=== PATIENT | female | born 1965 | race Caucasian/White ===

== ENCOUNTER 2023-07-25 16:00 | Outpatient (AMB) | payer OTHER, SELFPAY ==
--- NOTE | 2023-07-25 15:55 | MHC.OFFVISPS ---
Intake Vital Signs 07/25/23 15:55 Height 5 ft 4.5 in Weight 175 lb Intake Visit Reasons: depression, JOE Allergies sulfamethoxazole [From BACTRIM] Allergy (Mild, Unverified 01/27/20 17:29) RASH tetracycline [TETRACYCLINE] Allergy (Mild, Unverified 01/27/20 17:29) BRUISING trimethoprim [From BACTRIM] Allergy (Mild, Unverified 01/27/20 17:29) RASH Medication List - Last Reconciled 07/25/23 by Jayne Diez, ZENIA bupropion HCl (Wellbutrin XL) 150 mg PO QAM duloxetine 30 mg PO DAILY fluticasone propionate 110 mcg/actuation inhalation hydroxyzine HCl 25 mg PO BID PRN pantoprazole 40 mg PO DAILY risperidone 0.5 mg PO BEDTIME risperidone 0.25 mg PO BEDTIME trazodone 200 mg PO BEDTIME HPI- Psychiatric Chief Complaint: depression, JOE HPI Narrative: reports mood better; less anxious; coping well; happier; she has been feeling more anxious; Sleep is better; no abnormal or involuntary movements; no mouth or chin movements; she denies tremor or involuntary movements of her shoulders, arms, feet or trunk; she is sleeping 7-8 hours. she denies SI or HI. Past Psychiatric History: first depression in 2004 when brother due to cirrhosis, age 36 (ETOH/drugs) mother started drinking after, pt felt like she lost her brother and mother; moved out in 2019 after several years of conflict No IPLOC or PHP saw Dr Rivera in past Medication Trials: prozac - didn't help, nauseous Wellbutrin - no sex drive [place] - wasn't good, weird mouth movement felt weird Assessment and Plan Assessment & Plan (1) Major depression, recurrent, full remission: Status: Acute Code(s): F33.42 - Major depressive disorder, recurrent, in full remission (2) JOE (generalized anxiety disorder): Status: Acute Code(s): F41.1 - Generalized anxiety disorder Plan continue home meds as below reduce trazodone to 100mg at hs due to am sedation reduce prn use of hydroxyzine due to fatigue given information re: 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 Self Management counseling: Exercise, Maintenance-social rhythm, Mod caffeine/ETOH intake, Sleep hygiene, Behavior activation and General coping skills Medication management counseling: Effectiveness, Side effects, Dosing range, Duration, Drug interaction and Adherence Diagnosis and Prognosis Counseling: Accuracy of diagnosis, Prognosis over time, Impact of family relationship and Adequacy of current interventions Details: I spent 45 minutes reviewing the record, seeing the patient and documenting in the medical record. Counseling provided to the patient/caregiver as outlined below. Addressed patient/caregiver concerns regarding current medication regime including effective adherence. Addressed patient/caregiver concerns regarding diagnosis and prognosis including accuracy of diagnosis, prognosis over time, impact of diagnosis. Addressed patient/caregiver concerns regarding impact of recent stressors. [facility] Medical History (Updated 07/25/23 @ 16:00 by Jayne Diez APRN) Osteoarthritis Hyponatremia Surgical History (Updated 07/25/23 @ 15:57 by Jayne Diez APRN) H/O bilateral hip replacements Social History: grew up in [place] lived with mother and father, moved to [place], parents with patient was 89 brother who at age 36stepfather entered family when patient was 17separated from and 2 step children (estranged from) couldn't have children of own mom and stepfather are supportive Substance History: none Trauma History: none Coding Level of Care Code Est Pt Level 5 (17717) Diagnoses Major depression, recurrent, full remission F33.42 JOE (generalized anxiety disorder) F41.1
== END 2023-07-25 16:50 | disposition home or self-care (01) ==
LOC: HO.HOP 16:01
PROVIDERS: PCP Internal Medicine; Visit Provider Clinical Nurse Specialist Psychiatric/Mental Health
DX: F33.42 Major depressive disorder, recurrent, in full remission (principal); F41.1 Generalized anxiety disorder
CPT/HCPCS: 99215

== ENCOUNTER → 2023-07-25 16:00 | Outpatient (BNVA) | payer OTHER, SELFPAY | PROVIDERS: PCP Internal Medicine; Visit Provider Clinical Nurse Specialist Psychiatric/Mental Health | DX: F33.42 Major depressive disorder, recurrent, in full remission (principal); F41.1 Generalized anxiety disorder; Z79.899 Other long term (current) drug therapy | CPT/HCPCS: 99212 ==

== ENCOUNTER 2023-11-06 15:57 | Outpatient (AMB) | payer OTHER, SELFPAY ==
--- NOTE | 2023-11-06 16:09 | MHC.OFFVISPS ---
Intake Intake Visit Reasons: Depression, anxiety Allergies sulfamethoxazole [From BACTRIM] Allergy (Mild, Unverified 01/27/20 17:29) RASH tetracycline [TETRACYCLINE] Allergy (Mild, Unverified 01/27/20 17:29) BRUISING trimethoprim [From BACTRIM] Allergy (Mild, Unverified 01/27/20 17:29) RASH Medication List - Last Reconciled 11/06/23 by Jayne Diez APRN bupropion HCl XL (Wellbutrin XL) 150 mg PO QAM duloxetine 30 mg PO DAILY fluticasone propionate 110 mcg/actuation inhalation hydroxyzine HCl 25 mg PO BID PRN pantoprazole 40 mg PO DAILY risperidone 0.5 mg PO BEDTIME risperidone 0.25 mg PO BEDTIME trazodone 100 mg PO BEDTIME HPI- Psychiatric Chief Complaint: Depression, anxiety HPI Narrative: pt reports mood fair; very little depression; she scores a 7 on PHQ9. she reports anxiety is increased; she feels more anxious as mother's Alzheimer's Disease progresses. She utilizes the hydroxyzine prn if needed and it helps. Pts dog has also been sick. She worries about her dog. 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 Pt tends to spend time by herself; she prefers quiet activities and staying home; she walks every day while at work. she takes meds consistently; no side effects. no medical changes. no SI or HI. no A/V H Past Psychiatric History: first depression in 2004 when brother due to cirrhosis, age 36 (ETOH/drugs) mother started drinking after, pt felt like she lost her brother and mother; moved out in 2019 after several years of conflict No IPLOC or PHP saw Dr Rivera in past Medication Trials: prozac - didn't help, nauseous Wellbutrin - no sex drive [place] - wasn't good, weird mouth movement felt weird Subjective Subjective Subjective Medication Compliance: Yes Side effects from medications: No Review of Systems Medical Review of Systems: unchanged Mental Status Exam Mental Status Exam Patient Appearance: Well Grooomed and Appropriate Patient Orientation: Person, Place, Time and Situation Level of Consciousness: Awake and Appropriate Patient Behavior: Appropriate and Cooperative Mood Description: Appropriate, Anxious and Sad Affect Description: Anxious and Sad Patient Cognition Impaired: No Ability to Follow Directions: Good Speech Pattern: Clear and Soft-Spoken Memory Description: Intact Hallucinations: None Delusions: Not Present Thought Process: Intact and Goal Oriented Thought Content: positive for Intact and positive for Goal Oriented Judgement: Good Assessment and Plan Assessment & Plan (1) JOE (generalized anxiety disorder): Status: Acute Code(s): F41.1 - Generalized anxiety disorder (2) Major depression, recurrent, full remission: Status: Acute Code(s): F33.42 - Major depressive disorder, recurrent, in full remission Medications: Refilled bupropion HCl XL (Wellbutrin XL) 150 mg PO QAM 30 tabs 3RF risperidone 0.5 mg PO BEDTIME 30 tabs 3RF risperidone 0.25 mg PO BEDTIME 30 tabs 3RF trazodone 100 mg PO BEDTIME 90 tabs 1RF duloxetine 30 mg PO DAILY 30 caps 3RF Counseling and coordination of Care Pt. Self Management counseling: Exercise, Mod caffeine/ETOH intake, Sleep hygiene and Behavior activation Medication management counseling: Effectiveness, Side effects, Dosing range, Duration, Drug interaction and Adherence Diagnosis and Prognosis Counseling: Accuracy of diagnosis, Prognosis over time, Impact of diagnosis on life functions, Impact of family relationship and Adequacy of current interventions Details: I spent 45 minutes reviewing the record, seeing the patient and documenting in the medical record. Counseling provided to the patient/caregiver as outlined below. Addressed patient/caregiver concerns regarding current medication regime including effective adherence. Addressed patient/caregiver concerns regarding diagnosis and prognosis including accuracy of diagnosis, prognosis over time, impact of diagnosis. Addressed patient/caregiver concerns regarding impact of recent stressors. [facility] Medical History (Updated 07/25/23 @ 16:00 by Jayne Diez APRN) Osteoarthritis Hyponatremia Surgical History (Updated 07/25/23 @ 15:57 by Jayne Diez APRN) H/O bilateral hip replacements Social History: grew up in [place] lived with mother and father, moved to [place], parents with patient was 89 brother who at age 36stepfather entered family when patient was 17separated from and 2 step children (estranged from) couldn't have children of own mom and stepfather are supportive Substance History: none Trauma History: none Coding Level of Care Code Est Pt Level 4 (60382) Therapy 30m w/E&M (60856) Diagnoses JOE (generalized anxiety disorder) F41.1 Major depression, recurrent, full remission F33.42 Comment CBT and problem solving therapy to reduce caregiver distress
== END 2023-11-06 16:27 | disposition home or self-care (01) ==
LOC: HO.HOP 15:57
PROVIDERS: PCP Internal Medicine; Visit Provider Clinical Nurse Specialist Psychiatric/Mental Health
DX: F41.1 Generalized anxiety disorder (principal); F33.42 Major depressive disorder, recurrent, in full remission
CPT/HCPCS: 90833; 99214

== ENCOUNTER → 2023-11-06 15:57 | Outpatient (BNVA) | payer OTHER, SELFPAY | PROVIDERS: PCP Internal Medicine; Visit Provider Clinical Nurse Specialist Psychiatric/Mental Health | DX: F41.1 Generalized anxiety disorder (principal); F33.42 Major depressive disorder, recurrent, in full remission | CPT/HCPCS: 99212 ==

== ENCOUNTER 2024-02-24 15:49 | Outpatient (AMB) | payer OTHER, SELFPAY ==
--- NOTE | 2024-02-24 16:26 | MHC.OFFVISPS ---
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 Allergies sulfamethoxazole [From BACTRIM] Allergy (Mild, Unverified 01/27/20 17:29) RASH tetracycline [TETRACYCLINE] Allergy (Mild, Unverified 01/27/20 17:29) BRUISING trimethoprim [From BACTRIM] Allergy (Mild, Unverified 01/27/20 17:29) RASH Medication List - Last Reconciled 02/24/24 by aJyne Diez, ZENIA bupropion HCl XL (Wellbutrin XL) 150 mg PO QAM duloxetine 30 mg PO DAILY fluticasone propionate 110 mcg/actuation inhalation hydroxyzine HCl 25 mg PO BID PRN pantoprazole 40 mg PO DAILY risperidone 0.5 mg PO BEDTIME risperidone 0.25 mg PO BEDTIME trazodone 100 mg PO BEDTIME HPI- Psychiatric Chief Complaint: depression HPI Narrative: Patient reports mood is stable she denies significant changes PHQ-9 equals 5 Genralized Anxiety Disorder-7 equals 1 she reports working 6 days a week and over time she also reports taking care of her mother she has very little time for leisure she is sleeping no medical changes she recently had her annual physical and had her blood sugar and cholesterol checked both of which were in the normal range. Past Psychiatric History: first depression in 2004 when brother due to cirrhosis, age 36 (ETOH/drugs) mother started drinking after, pt felt like she lost her brother and mother; moved out in 2019 after several years of conflict No IPLOC or PHP saw Dr Rivera in past Medication Trials: prozac - didn't help, nauseous Wellbutrin - no sex drive [place] - wasn't good, weird mouth movement felt weird Subjective Subjective Subjective Medication Compliance: Yes Side effects from medications: No Review of Systems Medical Review of Systems: unchanged Mental Status Exam Mental Status Exam Patient Appearance: Well Grooomed and Appropriate Patient Orientation: Person, Place, Time and Situation Level of Consciousness: Awake and Appropriate Patient Behavior: Appropriate Mood Description: Angry (irritable) Affect Description: Angry (irritable) Patient Cognition Impaired: No Ability to Follow Directions: Good Speech Pattern: Clear Memory Description: Intact Hallucinations: None Delusions: Not Present Thought Process: Intact Thought Content: positive for Intact Judgement: Good Assessment and Plan Assessment & Plan (1) JOE (generalized anxiety disorder): Status: Acute Code(s): F41.1 - Generalized anxiety disorder (2) Major depression, recurrent, full remission: Status: Acute Code(s): F33.42 - Major depressive disorder, recurrent, in full remission Plan renew meds return in 3 months Medications: Refilled risperidone 0.5 mg PO BEDTIME 30 tabs 3RF bupropion HCl XL (Wellbutrin XL) 150 mg PO QAM 30 tabs 3RF duloxetine 30 mg PO DAILY 30 caps 3RF risperidone 0.25 mg PO BEDTIME 30 tabs 3RF trazodone 100 mg PO BEDTIME 90 tabs 1RF Counseling and coordination of Care Pt. Self Management counseling: Maintenance-social rhythm, Sleep hygiene, Behavior activation, General coping skills and Problem solving Medication management counseling: Effectiveness, Side effects, Dosing range, Duration, Drug interaction and Adherence Diagnosis and Prognosis Counseling: Accuracy of diagnosis, Prognosis over time, Impact of diagnosis on life functions, Impact of family relationship, Problematic behaviors secondary to diagnosis and Adequacy of current interventions Details: I spent 30 minutes reviewing the record, seeing the patient and documenting in the medical record. Counseling provided to the patient/caregiver as outlined below. Addressed patient/caregiver concerns regarding current medication regime including effective adherence. Addressed patient/caregiver concerns regarding diagnosis and prognosis including accuracy of diagnosis, prognosis over time, impact of diagnosis. Addressed patient/caregiver concerns regarding impact of recent stressors. [facility] Medical History (Updated 07/25/23 @ 16:00 by Jayne Diez APRN) Osteoarthritis Hyponatremia Surgical History (Updated 07/25/23 @ 15:57 by Jayne Diez APRN) H/O bilateral hip replacements Social History: grew up in [place] lived with mother and father, moved to [place], parents with patient was 89 brother who at age 36stepfather entered family when patient was 17separated from and 2 step children (estranged from) couldn't have children of own mom and stepfather are supportive Substance History: none Trauma History: none Coding Level of Care Code Est Pt Level 4 (04577) Diagnoses JOE (generalized anxiety disorder) F41.1 Major depression, recurrent, full remission F33.42
== END 2024-02-24 16:36 | disposition home or self-care (01) ==
LOC: HO.HOP 15:49
PROVIDERS: PCP Internal Medicine; Visit Provider Clinical Nurse Specialist Psychiatric/Mental Health
DX: F41.1 Generalized anxiety disorder (principal); F33.42 Major depressive disorder, recurrent, in full remission
CPT/HCPCS: 99214

== ENCOUNTER → 2024-02-24 15:49 | Outpatient (BNVA) | payer OTHER, SELFPAY | PROVIDERS: PCP Internal Medicine; Visit Provider Clinical Nurse Specialist Psychiatric/Mental Health | DX: F41.1 Generalized anxiety disorder (principal); F33.42 Major depressive disorder, recurrent, in full remission | CPT/HCPCS: 99212 ==

== ENCOUNTER 2024-05-24 15:49 | Outpatient (AMB) | payer OTHER, SELFPAY ==
--- NOTE | 2024-05-24 16:13 | MHC.OFFVISPS ---
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 Allergies sulfamethoxazole [From BACTRIM] Allergy (Mild, Unverified 01/27/20 17:29) RASH tetracycline [TETRACYCLINE] Allergy (Mild, Unverified 01/27/20 17:29) BRUISING trimethoprim [From BACTRIM] Allergy (Mild, Unverified 01/27/20 17:29) RASH Medication List - Last Reconciled 05/24/24 by Jayne Diez, ZENIA bupropion HCl XL (Wellbutrin XL) 150 mg PO QAM duloxetine 30 mg PO DAILY fluticasone propionate 110 mcg/actuation inhalation hydroxyzine HCl 25 mg PO BID PRN pantoprazole 40 mg PO DAILY risperidone 0.5 mg PO BEDTIME risperidone 0.25 mg PO BEDTIME trazodone 100 mg PO BEDTIME HPI- Psychiatric Chief Complaint: depression HPI Narrative: mood improved; anxiety decreased; pt reports doing well overall; she reports her mother started some alzheimer's medication which has helped and it feels much less stressful. PHQ9=2 and GAD7= 0. pt is compliant with medications; she denies side effects; she has some back pain from arthritis and will start PT. NO SI no HI . No sign of TD movements. no seddation no dizziness. Past Psychiatric History: first depression in 2004 when brother due to cirrhosis, age 36 (ETOH/drugs) mother started drinking after, pt felt like she lost her brother and mother; moved out in 2019 after several years of conflict No IPLOC or PHP saw Dr Rivera in past Medication Trials: prozac - didn't help, nauseous Wellbutrin - no sex drive [place] - wasn't good, weird mouth movement felt weird Subjective Subjective Subjective Medication Compliance: Yes Side effects from medications: No Review of Systems Medical Review of Systems: unchanged Mental Status Exam Mental Status Exam Patient Appearance: Well Grooomed and Appropriate Patient Orientation: Person, Place, Time and Situation Level of Consciousness: Awake, Appropriate and Alert Patient Behavior: Appropriate and Cooperative Mood Description: Happy Affect Description: Happy Patient Cognition Impaired: No Ability to Follow Directions: Good Speech Pattern: Clear and Appropriate Memory Description: Intact Hallucinations: None Delusions: Not Present Thought Process: Intact and Goal Oriented Thought Content: positive for Intact and positive for Goal Oriented Judgement: Good Assessment and Plan Assessment & Plan (1) JOE (generalized anxiety disorder): Status: Acute Code(s): F41.1 - Generalized anxiety disorder (2) Major depression, recurrent, full remission: Status: Acute Code(s): F33.42 - Major depressive disorder, recurrent, in full remission Plan continue medications per below consider additional taper of risperdal in future follow up in 3 [facility] Medications: Refilled duloxetine 30 mg PO DAILY 90 caps 1RF risperidone 0.5 mg PO BEDTIME 90 tabs 1RF bupropion HCl XL (Wellbutrin XL) 150 mg PO QAM 90 tabs 1RF risperidone 0.25 mg PO BEDTIME 90 tabs 1RF trazodone 100 mg PO BEDTIME 90 tabs 1RF Counseling and coordination of Care Pt. Self Management counseling: Maintenance-social rhythm, Mod caffeine/ETOH intake, Sleep hygiene, Behavior activation, General coping skills and Problem solving Medication management counseling: Effectiveness, Side effects, Dosing range, Duration, Drug interaction and Adherence Diagnosis and Prognosis Counseling: Accuracy of diagnosis, Prognosis over time, Impact of diagnosis on life functions, Impact of family relationship, Problematic behaviors secondary to diagnosis and Adequacy of current interventions Details: I spent 40 minutes reviewing the record, seeing the patient and documenting in the medical record. Counseling provided to the patient/caregiver as outlined below. Addressed patient/caregiver concerns regarding current medication regime including effective adherence. Addressed patient/caregiver concerns regarding diagnosis and prognosis including accuracy of diagnosis, prognosis over time, impact of diagnosis. Addressed patient/caregiver concerns regarding impact of recent stressors. [facility] Medical History (Updated 07/25/23 @ 16:00 by Jayne Diez APRN) Osteoarthritis Hyponatremia Surgical History (Updated 07/25/23 @ 15:57 by Jayne Diez APRN) H/O bilateral hip replacements Social History: grew up in [place] lived with mother and father, moved to [place], parents with patient was 89 brother who at age 36stepfather entered family when patient was 17separated from and 2 step children (estranged from) couldn't have children of own mom and stepfather are supportive Substance History: none Trauma History: none Coding Level of Care Code Est Pt Level 4 (06562) Diagnoses JOE (generalized anxiety disorder) F41.1 Major depression, recurrent, full remission F33.42
== END 2024-05-24 16:24 | disposition home or self-care (01) ==
LOC: HO.HOP 15:49
PROVIDERS: PCP Internal Medicine; Visit Provider Clinical Nurse Specialist Psychiatric/Mental Health
DX: F41.1 Generalized anxiety disorder (principal); F33.42 Major depressive disorder, recurrent, in full remission
CPT/HCPCS: 99214

== ENCOUNTER → 2024-05-24 15:49 | Outpatient (BNVA) | payer OTHER, SELFPAY | PROVIDERS: PCP Internal Medicine; Visit Provider Clinical Nurse Specialist Psychiatric/Mental Health | DX: F41.1 Generalized anxiety disorder (principal); F33.42 Major depressive disorder, recurrent, in full remission | CPT/HCPCS: 99212 ==

== ENCOUNTER 2024-09-02 16:26 | Outpatient (AMB) | payer OTHER, SELFPAY ==
--- NOTE | 2024-09-02 16:07 | MHC.OFFVISPS ---
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 Allergies sulfamethoxazole [From BACTRIM] Allergy (Mild, Unverified 01/27/20 17:29) RASH tetracycline [TETRACYCLINE] Allergy (Mild, Unverified 01/27/20 17:29) BRUISING trimethoprim [From BACTRIM] Allergy (Mild, Unverified 01/27/20 17:29) RASH Medication List - Last Reconciled 09/02/24 by Jayne Diez, ZENIA bupropion HCl XL (Wellbutrin XL) 150 mg PO QAM duloxetine 30 mg PO DAILY fluticasone propionate 110 mcg/actuation inhalation hydroxyzine pamoate 25 mg PO BID PRN pantoprazole 40 mg PO DAILY risperidone 0.5 mg PO BEDTIME risperidone 0.25 mg PO BEDTIME trazodone 100 mg PO BEDTIME HPI- Psychiatric Chief Complaint: depression HPI Narrative: Pt seen by telehealth for follow re: depression and anxiety. pt reports she is struggling more with symptoms ; strees includes her mother with Alzheimer Disease is needing her help but is very irritable and says mean things to her; this is not unlike when she was growing up as her mother was harsh an dcritical of her when younger; pt having a hard time tolerating and there is no other family to help. she would like to go bck up on the risperdal to 1 mg which she was on in hte past wth good effect. No SI or HI Past Psychiatric History: first depression in 2004 when brother due to cirrhosis, age 36 (ETOH/drugs) mother started drinking after, pt felt like she lost her brother and mother; moved out in 2019 after several years of conflict No IPLOC or PHP saw Dr Rivera in past Medication Trials: prozac - didn't help, nauseous Wellbutrin - no sex drive [place] - wasn't good, weird mouth movement felt weird Subjective Subjective Subjective Medication Compliance: Yes Side effects from medications: No Review of Systems Medical Review of Systems: unchanged Mental Status Exam Mental Status Exam Patient Appearance: Appropriate Patient Orientation: Person, Place, Time and Situation Level of Consciousness: Awake and Appropriate Patient Behavior: Appropriate and Cooperative Mood Description: Appropriate and Anxious Affect Description: Anxious Patient Cognition Impaired: No Ability to Follow Directions: Good Speech Pattern: Clear and Appropriate Memory Description: Intact Hallucinations: None Delusions: Not Present Thought Process: Intact Thought Content: positive for Intact Judgement: Fair Telehealth Telehealth Telehealth Platform: Other (please specify) (vivek.) Location of provider rendering services: practice address Location of patient: other (in her car in [facility] parked in a safe area) Patient Identification confirmed using: Name, : Yes Telehealth method: video Patient verbally consented to treatment: Yes Patient verbally consented to billing insurance company: Yes Patient informed of any privacy concerns related to visit: Yes Minutes spent on Phone/Video with Pt.: 30 Assessment and Plan Assessment & Plan (1) JOE (generalized anxiety disorder): Status: Acute Code(s): F41.1 - Generalized anxiety disorder (2) Major depression, recurrent, full remission: Status: Acute Code(s): F33.42 - Major depressive disorder, recurrent, in full remission Plan resume risperdal 1 mg daily continue other meds as per below Medications: New risperidone (Risperdal) 1 mg PO DAILY 90 tabs 0RF Refilled duloxetine 30 mg PO DAILY 90 caps 1RF bupropion HCl XL (Wellbutrin XL) 150 mg PO QAM 90 tabs 1RF hydroxyzine pamoate 25 mg PO BID PRN 180 caps 2RF itching Discontinued risperidone Discontinued Reason: Doctor's Order 0.5 mg PO BEDTIME 90 tabs 1RF risperidone Discontinued Reason: Doctor's Order 0.25 mg PO BEDTIME 90 tabs 1RF Counseling and coordination of Care Pt. Self Management counseling: Maintenance-social rhythm, Mod caffeine/ETOH intake, Nutrition education and improvement, Sleep hygiene, General coping skills and Problem solving Medication management counseling: Effectiveness, Side effects, Dosing range, Duration, Drug interaction and Adherence Diagnosis and Prognosis Counseling: Accuracy of diagnosis, Prognosis over time, Impact of diagnosis on life functions, Impact of family relationship, Problematic behaviors secondary to diagnosis and Adequacy of current interventions Details: I spent 40 minutes reviewing the record, seeing the patient and documenting in the medical record. Counseling provided to the patient/caregiver as outlined below. Addressed patient/caregiver concerns regarding current medication regime including effective adherence. Addressed patient/caregiver concerns regarding diagnosis and prognosis including accuracy of diagnosis, prognosis over time, impact of diagnosis. Addressed patient/caregiver concerns regarding impact of recent stressors. [facility] Medical History (Updated 07/25/23 @ 16:00 by Jayne Diez APRN) Osteoarthritis Hyponatremia Surgical History (Updated 07/25/23 @ 15:57 by Jayne Diez APRN) H/O bilateral hip replacements Social History: grew up in [place] lived with mother and father, moved to [place], parents with patient was 89 brother who at age 36stepfather entered family when patient was 17separated from and 2 step children (estranged from) couldn't have children of own mom and stepfather are supportive Substance History: none Trauma History: none Coding Level of Care Code Tele Est Pt Level 4 (57897) Diagnoses JOE (generalized anxiety disorder) F41.1 Major depression, recurrent, full remission F33.42
--- OUTSIDE RECORDS SUMMARY | 2024-09-02 18:45 | XMS_ITS | Clinical Summary ---
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 Swallow whole; do not crush, chew, or divide. Active FLUoxetine (PROzac) 10 MG capsule Take 10 mg by mouth daily. Active risperiDONE (RisperDAL) 0.5 MG tablet Take 0.5 mg by mouth 2 (two) times a day. Active traZODone (DESYREL) 100 MG tablet Take 100 mg by mouth nightly. Active meloxicam (MOBIC) 15 MG tablet Take 15 mg by mouth daily. Active Active Problems No known active problems Immunizations Immunization Administration Dates Next Due Covid-19 MRNA Vaccine - Pfizer 12+ (Purple Cap) 09/05/2020,08/15/2020 Social History Tobacco Use Types Packs/Day Years Used Date Smoking Tobacco: Never Smokeless Tobacco: Never Alcohol Use Standard Drinks/Week Comments Not Currently 0 (1 standard drink = 0.6 oz pur e alcohol) Comments Unknown Sex and Gender Information Value Date Recorded Sex Assigned at Not on file Legal Sex Female 12:41 PM EDT Gender Identity Female 08/13/2020 2:18 PM EDT Sexual Orientation Heterosexual (straight) 08/13 2:18 PM EDT Last Filed Vital Signs Vital Sign Reading Time Taken Comments Blood Pressure 111/87 02/24/2020 8:19 AM EDT Pulse 65 01/19/2021 1:56 PM EDT Temperature 37.1 ??C (98.8 ??F) 01/19/2021 1:56 PM ED T Respiratory Rate - - Oxygen Saturation 98% 01/19/2021 1:56 PM EDT Inhaled Oxygen Concentration - - Weight 74.8 kg (165 lb) 01/19/2021 1:56 PM EDT Height 165.1 cm (5' 5 ) 01/19/2021 1:56 PM EDT Body Mass Index 27.46 01/19/2021 1:56 PM EDT Plan of Treatment Health Maintenance Due Date Last Done Comments Hepatitis C Virus Screening 1966 HIV Screening 1979 DTaP/Tdap/Td Vaccines (1 - Tdap) 1985 Hepatitis B Vaccines (1 of 3 - 19+ 3-dose series) 1985 Pap Smear (Ages 21-65) 1987 Mammogram 2006 Colonoscopy 2011 Pneumococcal Vaccines 50+ (1 of 1 - PCV) 02/23/2016 Zoster (Shingles) Vaccine (1 of 2) 02/23/2016 Influenza Vaccine 12/11/2023 02/05/2021 COVID-19 Vaccine (2023- season) 2024, 08/15/2020 Insurance [facility] [place]
--- OUTSIDE RECORDS SUMMARY | 2024-09-02 18:45 | XMS_ITS | Clinical Summary ---
Author Organization [facility] [address] [facility] Address [address] [place] [address] Phone Care Team Providers Care Contract Law Specialist Name Role Phone Anai Stoddard MD Primary Care Provider [phone] Allergies Active Allergy Reactions Criticality Noted Date Comments Sulfamethoxazole-Trimethopri m 02/28/2012 Tetracycline Itching,Nausea And Vomiting 09/01/2006 Medications hydrOXYzine pamoate (VISTARIL) 25 mg capsule Take 1 Capsule by mouth as needed. 4 Active buPROPion XL (WELLBUTRIN XL) 150 mg 24 hr tablet 3 Active fluticasone HFA (FLOVENT HFA) 110 mcg/actuation inhaler INHALE 2 PUFFS INTO THE LUNGS TWICE DAILY 3 Active ferrous sulfate 325 mg (65 mg elemental iron) tablet Take 1 tablet (325 mg total) by mouth 1 (one) time each day. Active reservoir inhalation (INSPIREASE) device Pt to use space with albuterol inhaler. 3 Active risperiDONE (RisperDAL) 0.25 mg tablet Take 1 Tablet by mouth at bedtime. 3 Active Lactobacillus acidophilus (PROBIOTIC ORAL) Take 1 Capsule by mouth daily. 3 Active multivitamin with minerals (MULTIPLE VITAMIN-MINERALS ORAL) Take by mouth daily. Active DULoxetine (CYMBALTA) [address] capsule Take 1 Cap by mouth daily for 30 days. 9 Active traZODone (DESYREL) 100 mg tablet Take 1 Tab by mouth at bedtime. 9 Active risperiDONE (RisperDAL) 0.5 mg tablet Take 1 Tab by mouth daily for 90 days. 9 Active cholecalciferol (VITAMIN D-3) 50 mcg (2,000 unit) capsule Take by mouth. Activ e glucosamine sulfate (Glucosamine) 500 mg tablet Take by mouth. A ctive omega-3 acid ethyl esters (LOVAZA) 1 gram capsule 1 cap daily Active cetirizine (ZyrTEC) 10 mg tablet 1 TABLET DAILY 8 Active pantoprazole (PROTONIX) 40 mg EC tablet Take 1 tablet (40 mg total) by mouth 1 (one) time each day. 90 tablet 1 5 Active albuterol HFA (PROAIR HFA ; PROVENTIL HFA ; VENTOLIN HFA) 90 mcg/actuation inhaler Inhale 2 puffs by mouth every 6 (six) hours if needed for wheezing or shortness of breath. 6.7 g 1 5 Active Active Problems Problem Noted Date Diagnosed Date Acute cough 01/22/2023 Positive self-administered antigen test for COVI D-19 01/22/2023 SOB (shortness of breath) 01/22/2023 IBS (irritable bowel syndrome) 09/10/2022 Overview (03/22/2024): Dr. Alfaro Obesity (BMI 30.0-34.9) 09/10/2022 Osteopenia 01/16/2022 Overview (03/22/2024): 01/31 T score spine -1.3 hip -1.1 History of bilateral hip replacements 04/11/2017 Mixed hyperlipidemia 04/11/2017 Major depressive disorder, r ecurrent episode, in partial remission (CMS/[facility] V24) 08/14/2015 Fallen arches 08/08/2011 Acne 08/03/2010 Anemia 03/18/2008 Raynaud's syndrome 09/01/2006 Overview (03/22/2024): improved Allergic rhinitis 08/09/2005 Asthma 08/09/2005 Encounters Date Type Department Care Team Description 07/27/2024 8:45 AM EDT Office Visit Obstetrics and Gynecology - [address] [phone] Erin Ballard CNM Encounter for gynecological examination without abnormal finding (Primary Dx) 06/24/2024 4:00 PM EST Treatment Outpatient [address] [phone] Weidler, Fartun, 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 Bilateral low back pain without sciatica, unspecified chronicity (Primary Dx) 06/21/2024 4:00 PM EST Treatment Outpatient [facility] - [address] [phone] 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, 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, [employer]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 Bilateral low back pain without sciatica, unspecified chronicity (Primary Dx) 06/14/2024 5:00 PM EST Treatment Outpatient [facility] - [address] [phone] Weidler, Fartun, [employer]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 Bilateral low back pain without sciatica, unspecified chronicity (Primary Dx) 06/10/2024 3:30 PM EST Treatment Outpatient [facility] - [address] [phone] Weidler, 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, 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 Bilateral low back pain without sciatica, unspecified chronicity (Primary Dx) 06/07/2024 5:00 PM EST Treatment Outpatient [facility] - [address] [phone] Weidler, Fartun, 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 Bilateral low back pain without sciatica, unspecified chronicity (Primary Dx) from Last 3 Months Immunizations Name Administration Dates Next Due Hepatitis B (Qlhmiek-O-Vikdm , Recombivax HB-Adult) 19yo and older 09/12/2010,03/07/2010,02/02/2010 Hepatitis B (Recombivax HB-D ialysis) 18yo and older 09/12/2010,03/07/2010,02/02/2010 Influenza trivalent, 0.5mL, preservative free (Fluarix; FluLaval; Fluzone) ages 6mo and older (Afluria) 3 years and older 03/06/2016,02/02/2015,01/22/2011,01/29 Influenza, Unspecified 02/09/2021,01/11/2020 MMR, measles mumps and rubel la Live (Priorix; M-M-R II) 12mo and older 10/21/2018,04/11/2010,03/07/2010 PPD Test 01/22/2011,01/30/2010 Pfizer (ages 12 & older) Biv alent, COVID-19 01/18/2022 Pfizer SARS-CoV-2 COVID-19, mRNA, LNP-S, preservative free 08/17/2021,03/28/2021,09/05/2020,08/15 Pneumococcal polysaccharide 23 valent (Pneumovax 23) 2yo and older 10/15/2013 Rubella 01/31/2010 Td Tetanus diptheria (Tdvax) 7yo and older 09/16/2016 Tdap Tetanus diptheria acell ular pertussis (Boostrix; Adacel) 7yo and older 09/01/2006 Varicella live (Varivax) 12m o and older 01/31/2010 Zoster recombinant (Shingrix ) 19yo and older 02/24/2019,12/25/2018 Surgical History Surgery Date Site/Laterality Comments BUNIONECTOMY 2004 Right PROCEDURE: BUNION SURGERY, SIMPLE REMOVAL HIP ARTHROPLASTY 2011 Left PROCEDURE: HISTORICAL HIP REPLACEMENT; COMMENT: AGUSTIN's COLONOSCOPY 08/15/2007 PROCEDURE: HISTORICAL COLONOSCOPY; COMMENT: Up to cecum, normal colon exam, random bx:Normal COLONOSCOPY 04/01/2016 PROCEDURE: HISTORICAL COLONOSCOPY; COMMENT: cecal adenma; repeqt in 6 months under propofol COLONOSCOPY 01/06/2017 PROCEDURE: HISTORICAL COLONOSCOPY; COMMENT: Two thickened folds cauterized, but no adenomatous tissue; Repeat under propofol in two years. BREAST BIOPSY 2009 Left PROCEDURE: BX BREAST; PERC NEEDLE CORE W/IMAG GUID; COMMENT: lt breast? bx neg HIP ARTHROPLASTY 2016 Right PROCEDURE: HISTORICAL HIP REPLACEMENT; COMMENT: AGUSTIN's COLONOSCOPY 07/2022 PROCEDURE: HISTORICAL COLONOSCOPY; COMMENT: Repeat in 5 years COLONOSCOPY 06/2019 PROCEDURE: HISTORICAL COLONOSCOPY; COMMENT: Repeat in 3 years Medical History Medical History Date Comments Unspecified asthma(493.90) DX:Un specified asthma(493.90) Allergic rhinitis, cause unspecified DX:Allergic rhinitis, cause unspecified Raynaud's syndrome 09/01/2006 DX:Raynaud's syndrome Depression 08/26/2007 DX:Depression Anemia 03/18/2008 DX:Anemia Acne 08/03/2010 DX:Acne Pelvic pain 04/14/2012 DX:Pelvic pain Osteoarthritis of both hips 04/14/2012 DX:O steoarthritis of both hips Depression, major, recurrent , in remission ([facility] V24) 06/29/2012 DX:Depression, major, recurr ent, in remission ([facility]) Bursitis of right hip 2014 DX:Bursiti s of right hip History of pelvic fracture 07/2020 DX:Hi story of pelvic fracture History of bilateral hip replacements 04/11/2017 DX:History of bilateral hip replacements; COMMENT: 03/05/2017 Osteopenia 01/16/2022 DX:Osteopenia; C OMMENT: DEXA 01/2022 Family History Medical History Relation Name Comments Alcohol/Drug Brother x 1 alcoholic cirrh osis ( age 35) Diabetes Father adopted htn COPD Maternal Grandmother heart i ssues Colon polyps Mother (#10 polyps), a rthritis, DVTs, depression, htn, carotid stenosis Breast cancer Neg Hx Ovarian cancer Neg Hx Uterine cancer Neg Hx Relation Name Status Comments Brother x 1 Father adopted Maternal Grandfather Maternal Grandmother Mother Alive Social History Tobacco Use Types Packs/Day Years Used Date Smoking Tobacco: Former Smokeless Tobacco: Never Tobacco Cessation:Counseling Given: Not Answered Alcohol Use Standard Drinks/Week Comments Not Currently 0 (1 standard drink = 0.6 oz pur e alcohol) Comments No Sex and Gender Information Value Date Recorded Sex Assigned at Not on file Legal Sex Female 12:19 AM EST Gender Identity Not on file Sexual Orientation Not on file Obstetrics History Para Term AB IAB SAB Ectopic Multiple Livin g Live Births 1 0 0 1 1 Date Outcome GA Total Labor Labor/2nd/3rd Weight Sex Type Anes PTL Janie A1 A5 Name Clin IAB Last Filed Vital Signs Vital Sign Reading Time Taken Comments Blood Pressure 126/80 07/27/2024 8:48 AM EDT Pulse 90 07/27/2024 8:48 AM EDT Temperature 35.7 ??C (96.3 ??F) 05/24/2024 9:52 AM ES T Respiratory Rate 12 05/24/2024 9:52 AM EST Oxygen Saturation - - Inhaled Oxygen Concentration - - Weight 78.5 kg (173 lb) 07/27/2024 8:48 AM EDT Height 162.6 cm (5' 4 ) 07/27/2024 8:48 AM EDT Body Mass Index 29.7 07/27/2024 8:48 AM EDT Plan of Treatment Upcoming Encounters Date Type Department Care Team (Late st Contact Info) Description 10/26/2024 4:00 PM EDT Office Visit Adult Medicine [facility] [address] [place] [phone] Giulia Garcia PA [address] [place] [address] Health Maintenance Due Date Last Done Comments Hepatitis A Vaccines (1 of 2 - Risk 2-dose series) 1985 Pneumococcal Vaccine: 50+ Years (2 of 2 - PCV) 10/15/2014 10/15/2013 Pneumococcal Vaccine: Pediatrics (0 to 5 Years) and At-Risk Patients (6 to 64 Years) (2 of 2 - PCV) 10/15/2014 10/15/2013 Depression Screening 04/20/2022 HIV Screening 04/20/2022 Social Influencers of Health Screening 04/20/2022 Colorectal Cancer Screening: Colonoscopy 07/10/2024 07/10/2022 Breast Cancer Screening 05/31/2026 05/31/19 25, 06/13/2023, 05/19/2023, Additional history exists DTaP,Tdap,and Td Vaccines (3 - Td or Tdap) 09/16/2026 09/16/2016, 09/01/2006 Cholesterol Screening (Lipid Panel) 10/20/2028 10/21/2023, 10/21/2023 Cervical Cancer Screening: HPV 07/27/2029 07/27/2024, 05/19/2020 Osteoporosis Screening (Bone Density Screening) 01/15/2037 01/15/2022 Varicella Vaccines Aged Out 01/31/2010 No longer eligible based on patient's age to complete this topic Hepatitis B Vaccines Completed 09/12/2010, 09/12/2010, 03/07/2010, Additional history exists Hepatitis C Screening Completed 01/28/2015 MMR Vaccines Aged Out 10/21/2018, 12/0 05/2009, 03/07/2010 No longer eligible based on patient's age to complete this topic Zoster Vaccines Completed 02/24/2019, 12/10, 01/31/2010 COVID-19 Vaccine Completed 01/12/2024, , 01/18/2022, Additional history exists Influenza Vaccine Completed 01/12/2024, , 01/11/2022, Additional history exists HIB Vaccines Aged Out No longer eligi ble based on patient's age to complete this topic HPV Vaccines Aged Out No longer eligi ble based on patient's age to complete this topic IPV Vaccines Aged Out No longer eligi ble based on patient's age to complete this topic Meningococcal ACWY Vaccine Aged Out N o longer eligible based on patient's age to complete this topic Meningococcal B Vaccine Aged Out No l onger eligible based on patient's age to complete this topic RSV Immunization Patients Under 20 months Aged Out No longer eligible based on patient's age to complete this topic Goals Goal Patient Goal Type Associated Problems Recent Progress Patient-Stated? Author STG's 6 visits General Yes Alban Nickerson, PT Note: Pt is Independent and compliant with initial HEP of stretching. Pt will perform correct technique for sup<->sit transfers w/ min VC's in 5/5 trials. Pt will demonstrate lumbar flexion to 60 degrees or better for dressing. Pt will report a 50% or better increased tolerance to sitting at work. LTG's 12 visits General Yes Alban Nickerson, PT Note: Pt will be Independent and compliant with final HEP. Pt will I demonstrate proper technique for sup<->sit transfers in 5/5 trials. Pt will demonstrate lumbar flexion of 65 degrees or better for ADL's. Pt will report a 75% or better increased tolerance to sitting at work. Procedures Procedure Name Priority Date/Time Associated Diagnosis Comments PAP SMEAR Routine 07/27/2024 2:17 PM EDT Encounter for gynecological examination without abnormal finding HPV WITH REFLEX GENOTYPE Routine 07/27/2024 2:17 PM EDT Encounter for gynecological examination without abnormal finding MG MAMMO DIGITAL SCREENING W RUDOLPH BILAT Routine 05/31/2024 4:16 PM EST Encounter for screening mammogram for breast cancer LIPID PANEL Routine 10/21/2023 COLONOSCOPY Routine 07/10/2022 DXA BONE DENSITY STUDY 1+ SITS AXIAL SKEL Routine 01/15/2022 4:05 PM EDT Personal history of (healed) traumatic fracture Family history of osteoporosis Personal history of nicotine dependence Asymptomatic menopausal state HEPATITIS C SCREENING Routine 01/28/2015 from Last 3 Months or Most Recently Relevant to Health Maintenance Results * HPV with reflex genotype (07/27/2024 2:17 PM EDT) HPV Negative Negative LAB MICROBIOLOGY METHOD 07/28/2024 2:07 PM EDT [facility] Brushing/Spatula Cervix uteri structure / Unknown 07/27/2024 2:17 PM EDT 07/28/2024 7:34 AM EDT us Erin Ballard CNM LAB MOLECULAR DIAGNOSTICS LEISA HADLEY Final Result [facility] [address] [place] [address], * Pap smear (07/27/2024 2:17 PM EDT) Interpretation Negative for intraepithelial lesion or malignancy 07/30/2024 1:35 PM EDT [facility] General Categorization Negative 07/30/2024 1:35 PM EDT [facility] Other Findings Atrophy 07/30/2024 1:35 PM EDT [facility] Specimen Adequacy Satisfactory for evaluation, endocervical/hair sformation zone component present 07/30/2024 1:35 PM EDT [facility] Pap Methodology Liquid Based Pap Test 07/30/2024 1:35 PM EDT [facility] Disclaimer The Pap test is a screening test which carries an inherent false negative rate. These test results should be correlated with the patient's clinical findings and history. This Pap test was processed using an automated screening system. Technical cytopathology services provided by [facility], at [address] [place] [address] (CLIA # [id number]/Delta Mckeon MD, Showroom Manager.) 07/30/2024 1:35 PM EDT [facility] Console Pap Interpretation Reported 07/30/2024 1:35 PM EDT [facility] Brushing/Spatula Cervix uteri structure / Unknown 07/27/2024 2:17 PM EDT 07/27/2024 2:17 PM EDT Erin HILARIO LAB CYTOLOGY ORDERABLES Final Result [facility] [address] [place] [address], [place] [phone] * MG Mammo Digital Screening w Rudolph bilat (05/31/2024 4:16 PM EST) Anatomical Region Laterality Modality Breast Bilateral Mammography 06/01/2024 4:41 PM EST Impressions 06/01/2024 4:46 PM EST 1. No mammographic evidence of malignancy 2. Scattered fibroglandular tissue BI-RADS CATEGORY: 2 - BENIGN RECOMMENDATION: Screening bilateral mammogram is recommended in 1 year. Mammo Location: [facility], [address] [place] [address], [phone], . -------- FINAL REPORT -------- Dictated By: James Dao Dictated Date: 06/01/2024 16:41 ET Assigned Physician: James Dao Reviewed and Electronically Signed By: James Dao Signed Date: 06/01/2024 16:46 ET Workstation ID: [id number] Transcribed By: Self Edit Transcribed Date: 06/01/2024 16:41 ET Narrative 06/01/2024 4:46 PM EST A BILATERAL DIGITAL 3D SCREENING MAMMOGRAPHY HISTORY: Routine screening. ?? COMPARISON: Multiple priors dating back to 02/09/2020 Technique: Bilateral full field digital mammography (3D) was performed using standard CC and MLO projections , right cleavage view CAD ??was used to evaluate this mammogram. FINDINGS: Right: No suspicious masses, groups of microcalcification or areas of architectural distortion identified. Stable typically benign parenchymal asymmetries. Left: No suspicious masses, groups of microcalcification or areas of architectural distortion identified. Stable typically benign parenchymal asymmetries. ??Scattered typically benign calcifications. BREAST DENSITY: B - There are scattered areas of fibroglandular density. Procedure Note James Dao MD - 06/01/2024 A BILATERAL DIGITAL 3D SCREENING MAMMOGRAPHY HISTORY: Routine screening. COMPARISON: Multiple priors dating back to 02/09/2020 Technique: Bilateral full field digital mammography (3D) was performedusing standard CC and MLO projections , right cleavage view CAD was used to evaluate this mammogram. FINDINGS: Right: No suspicious masses, groups of microcalcification or areas ofarchitectural distortion identified. Stable typically benign parenchymalasymmetries. Left: No suspicious masses, groups of microcalcification or areas ofarchitectural distortion identified. Stable typically benign parenchymalasymmetries. Scattered typically benign calcifications. BREAST DENSITY: B - There are scattered areas of fibroglandular density. IMPRESSION: 1. No mammographic evidence of malignancy 2. Scattered fibroglandular tissue BI-RADS CATEGORY: 2 - BENIGN RECOMMENDATION: Screening bilateral mammogram is recommended in 1 year. Mammo Location: [facility], [address] [place] [address], [phone], . -------- FINAL REPORT -------- Dictated By: James Dao Dictated Date: 06/01/2024 16:41 ET Assigned Physician: James Dao Reviewed and Electronically Signed By: James Dao Signed Date: 06/01/2024 16:46 ET Workstation ID: [id number] Transcribed By: Self Edit Transcribed Date: 06/01/2024 16:41 ET Anai Stoddard MD IMG BI PROCEDURES Final Result * (ABNORMAL) Lipid panel (10/21/2023) LDL/HDL Ratio 3 0 - 4 Triglycerides 122 0 - 150 mg/dL Cholesterol 208(A) 0 - 200 mg/dL HDL 62 >=40 mg/dL LDL Cholesterol 122(A) 0 - 100 mg/dL Blood Venous blood specimen / Unknown Historical Provider LAB BLOOD ORDERABLES Julissa l Result * Colonoscopy (07/10/2022) Colonoscopy no interpretation , abstracted Anatomical Region Laterality Modality Other Historical Provider HEALTH MAINTENANCE Final Result * DXA BONE DENSITY STUDY 1+ SITS AXIAL SKEL (01/15/2022 4:05 PM EDT) Anatomical Region Laterality Modality Bone Densitometr y 11/14/2021 12:1 7 PM EDT Narrative 01/15/2022 6:50 PM EDT BONE DENSITY SCAN (DEXA): FINDINGS: Lumbar Spine T-score is -1.3. ?? (SD relative to 20-29 y/o adult) Z-score is -0.1. ??(SD relative to age matched peers) This is considered osteopenia by WHO criteria. Left Forearm T-score is -1.1. Z-score is -0.1. This is considered osteopenia by WHO criteria. Comparison exam(s): None. IMPRESSION: IMPRESSION: ?? Osteopenia by WHO criteria. The [facility] Department of Internal Medicine recommends using National Osteoporosis Foundation (NOF) guidelines in treatment decisions related to osteoporosis. NOF guidelines suggest considering treatment for postmenopausal women and men aged 50 or older presenting with the following: History of hip or vertebral fracture. T-score = -2.5 (DXA) at the femoral neck, total hip, or spine, after appropriate evaluation to exclude secondary causes. Low bone mass (T-score between -1.0 and -2.5 at the femoral neck or spine) AND a 10-year probability of a hip fracture = 3% OR a 10-year probability of a major osteoporosis-related fracture = 20% based on the [place]-adapted WHO algorithm Please note that all treatment decisions require clinical judgment and consideration of individual patient factors, including patient preferences, co-morbidities, previous drug use, risk factors not captured in the FRAX model (e.g., frailty, falls, vitamin D deficiency, increased bone turnover, interval significant decline in bone density) and possible under- or over-estimation of fracture risk by FRAX. Optional alternative screening schedule based on marleni Ruiz., [facility] May 30, 2011 for patients with osteopenia (based on hip BMD T-score) is as follows: * ??advanced osteopenia (T scores -2.00 to -2.49), BMD testing every year * ??moderate osteopenia (T scores -1.50 to -1.99), BMD testing every 5 years mild osteopenia or normal BMD (T scores -1.50 and higher), BMD testing every 15 years Procedure Note Vianney Wiseman MD - 04/30/2022 BONE DENSITY SCAN (DEXA): FINDINGS: Lumbar Spine T-score is -1.3. (SD relative to 20-29 y/o adult) Z-score is -0.1. (SD relative to age matched peers) This is considered osteopenia by WHO criteria. Left Forearm T-score is -1.1. Z-score is -0.1. This is considered osteopenia by WHO criteria. Comparison exam(s): None. IMPRESSION: IMPRESSION: Osteopenia by WHO criteria. The [facility] Department of Internal Medicine recommendsusing National Osteoporosis Foundation (NOF) guidelines in treatment decisions related toosteoporosis. NOF guidelines suggest considering treatment for postmenopausal women and menaged 50 or older presenting with the following: History of hip or vertebral fracture. T-score = -2.5 (DXA) at the femoral neck, total hip, or spine, afterappropriate evaluation to exclude secondary causes. Low bone mass (T-score between -1.0 and -2.5 at the femoral neck or spine)AND a 10-year probability of a hip fracture = 3% OR a 10-year probability of a majorosteoporosis-related fracture = 20% based on the [place]-adapted WHO algorithm Please note that all treatment decisions require clinical judgment andconsideration of individual patient factors, including patient preferences, co- morbidities,previous drug use, risk factors not captured in the FRAX model (e.g., frailty, falls, vitaminD deficiency, increased bone turnover, interval significant decline in bone density) andpossible under- or over-estimation of fracture risk by FRAX. Optional alternative screening schedule based on [facility] Ruiz., [facility] for patients with osteopenia (based on hip BMD T-score) is as follows: * advanced osteopenia (T scores -2.00 to -2.49), BMD testing every year * moderate osteopenia (T scores -1.50 to -1.99), BMD testing every 5years mild osteopenia or normal BMD (T scores -1.50 and higher), BMD testingevery 15 years Aline ESQUIVEL IMG DXA PROCEDURES Final R esult * Hepatitis C Screening (01/28/2015) [facility] Hepatitis C Screening abstracted Historical Provider MD HEALTH MAINTENANCE Final Result from Last 3 Months or Most Recently Relevant to Health Maintenance Insurance [facility] [employer] [place] [id number] Care Teams Contract Law Specialist Relationship Specialty Start Date End Date Anai Stoddard MD [address] [place] [id number] PCP - General Internal Medicine 07/26/24
== END 2024-09-02 16:28 | disposition home or self-care (01) ==
LOC: HO.HOP 16:26
PROVIDERS: PCP Internal Medicine; Visit Provider Clinical Nurse Specialist Psychiatric/Mental Health
DX: F41.1 Generalized anxiety disorder (principal); F33.42 Major depressive disorder, recurrent, in full remission
CPT/HCPCS: 99214

== ENCOUNTER → 2024-09-02 16:26 | Outpatient (BNVA) | payer OTHER, SELFPAY | PROVIDERS: PCP Internal Medicine; Visit Provider Clinical Nurse Specialist Psychiatric/Mental Health ==

== ENCOUNTER 2024-10-07 17:06 | Outpatient (AMB) | payer OTHER, SELFPAY ==
--- NOTE | 2024-10-07 16:32 | A.OFFPSYCH_ITS ---
Intake Intake Visit Reasons: depression Electronic Equipment Repairer Required: No Allergies sulfamethoxazole [From BACTRIM] Allergy (Mild, Unverified 01/27/20 17:29) RASH tetracycline [TETRACYCLINE] Allergy (Mild, Unverified 01/27/20 17:29) BRUISING trimethoprim [From BACTRIM] Allergy (Mild, Unverified 01/27/20 17:29) RASH Medication List - Last Reconciled 10/07/24 by Jayne Diez, ZENIA bupropion HCl XL (Wellbutrin XL) 150 mg PO QAM duloxetine 30 mg PO DAILY fluticasone propionate 110 mcg/actuation inhalation hydroxyzine pamoate 25 mg PO BID PRN pantoprazole 40 mg PO DAILY risperidone (Risperdal) 1 mg PO DAILY trazodone 100 mg PO BEDTIME HPI- Psychiatric Chief Complaint: depression HPI Narrative: pt reports improvemnt with increase in risperdal back to 1mg daily; her mood is much improved; she is coping welll; she is less irritbale and overwhelmed; she denies side effects. She denies SI or HI. Past Psychiatric History: first depression in 2004 when brother due to cirrhosis, age 36 (ETOH/drugs) mother started drinking after, pt felt like she lost her brother and mother; moved out in 2019 after several years of conflict No IPLOC or PHP saw Dr Rivera in past Medication Trials: prozac - didn't help, nauseous Wellbutrin - no sex drive latuda - wasn't good, weird mouth movement felt weird Subjective Subjective Subjective Medication Compliance: Yes Side effects from medications: No Review of Systems Medical Review of Systems: unchanged Mental Status Exam Mental Status Exam Patient Appearance: Well Grooomed Patient Orientation: Person, Place, Time and Situation Level of Consciousness: Awake Patient Behavior: Appropriate and Cooperative Mood Description: Calm and Happy Affect Description: Happy Patient Cognition Impaired: No Ability to Follow Directions: Good Speech Pattern: Clear and Soft-Spoken Memory Description: Intact Hallucinations: None Delusions: Not Present Thought Process: Intact and Goal Oriented Thought Content: positive for Intact and positive for Goal Oriented Judgement: Good Telehealth Telehealth Telehealth Platform: Other (please specify) ([email or web address]) Location of provider rendering services: practice address Location of patient: address on file Patient Identification confirmed using: Name, : Yes Telehealth method: video Patient verbally consented to treatment: Yes Patient verbally consented to billing insurance company: Yes Patient informed of any privacy concerns related to visit: Yes Minutes spent on Phone/Video with Pt.: 25 Assessment and Plan Assessment & Plan (1) JOE (generalized anxiety disorder): Status: Acute Code(s): F41.1 - Generalized anxiety disorder (2) Major depression, recurrent, full remission: Status: Acute Code(s): F33.42 - Major depressive disorder, recurrent, in full remission Plan continue meds per below follow up in 3 months Medications: Refilled duloxetine 30 mg PO DAILY 90 caps 1RF risperidone (Risperdal) 1 mg PO DAILY 90 tabs 0RF bupropion HCl XL (Wellbutrin XL) 150 mg PO QAM 90 tabs 1RF hydroxyzine pamoate 25 mg PO BID PRN 180 caps 2RF itching trazodone 100 mg PO BEDTIME 90 tabs 1RF Counseling and coordination of Care Medication management counseling: Effectiveness, Side effects, Dosing range, Duration, Drug interaction and Adherence Diagnosis and Prognosis Counseling: Accuracy of diagnosis, Prognosis over time, Problematic behaviors secondary to diagnosis and Adequacy of current interventions Details: I spent 35 minutes reviewing the record, seeing the patient and documenting in the medical record. Counseling provided to the patient/caregiver as outlined below. Addressed patient/caregiver concerns regarding current medication regime including effecti ve adherence. Addressed patient/caregiver concerns regarding diagnosis and prognosis including accuracy of diagnosis, prognosis over time, impact of diagnosis. Addressed patient/caregiver concerns regarding impact of recent stressors. PFSH Medical History (Updated 07/25/23 @ 16:00 by Jayne Diez APRN) Osteoarthritis Hyponatremia Surgical History (Updated 07/25/23 @ 15:57 by Jayne Diez APRN) H/O bilateral hip replacements Social History: grew up in [place] lived with mother and father, moved to [place], parents with patient was 89 brother who at age 36stepfather entered family when patient was 17separated from and 2 step children (estranged from) couldn't have children of own mom and stepfather are supportive Substance History: none Trauma History: none Coding Level of Care Code Tele Est Pt Level 4 (21319) Diagnoses JOE (generalized anxiety disorder) F41.1 Major depression, recurrent, full remission F33.42
== END 2024-10-07 17:07 | disposition home or self-care (01) ==
LOC: HO.HOP 17:06
PROVIDERS: PCP Internal Medicine; Visit Provider Clinical Nurse Specialist Psychiatric/Mental Health
DX: F41.1 Generalized anxiety disorder (principal); F33.42 Major depressive disorder, recurrent, in full remission
CPT/HCPCS: 99214

== ENCOUNTER → 2024-10-07 17:06 | Outpatient (BNVA) | payer OTHER, SELFPAY | PROVIDERS: PCP Internal Medicine; Visit Provider Clinical Nurse Specialist Psychiatric/Mental Health ==

== ENCOUNTER 2024-12-06 15:02 | Outpatient (REF) | payer OTHER, SELFPAY ==
--- OUTSIDE RECORDS SUMMARY | 2024-12-06 15:34 | XMS_ITS | Clinical Summary ---
Author Organization [facility] Address [address] [place] [address] Phone Care Team Providers Care Machine Setter And Repairer Name Role Phone Anai Stoddard MD Primary Care Provider [phone] Allergies Active Allergy Reactions Criticality Noted Date [...] mg tablet 1 TABLET DAILY 8 Active albuterol HFA (PROAIR HFA ; PROVENTIL HFA ; VENTOLIN HFA) 90 mcg/actuation inhaler Inhale 2 puffs by mouth every 6 (six) hours if needed for wheezing or shortness of breath. 6.7 g 1 5 Active pantoprazole (PROTONIX) 40 mg EC tablet Take 1 tablet (40 mg total) by mouth 1 (one) time each day. 90 tablet 1 5 Active Active Problems Problem Noted Date Diagnosed Date Gastroesophageal reflux disease 10/26/2024 Acute cough 01/22/2023 Positive self-administered antigen test for COVI D-19 01/22/2023 SOB (shortness of breath) 01/22/2023 IBS (irritable bowel syndrome) 09/10/2022 Overview (03/22/2024): Dr. Alfaro Obesity (BMI 30.0-34.9) 09/10/2022 Osteopenia 01/16/2022 Overview (03/22/2024): 01/31 T score spine -1.3 hip -1.1 History of bilateral hip replacements 04/11/2017 Mixed hyperlipidemia 04/11/2017 Major depressive disorder, r ecurrent episode, in partial remission (CMS/[facility] V24) 08/14/2015 Fallen arches 08/08/2011 Acne 08/03/2010 Anemia 03/18/2008 Raynaud's syndrome 09/01/2006 Overview (03/22/2024): improved Allergic rhinitis 08/09/2005 Asthma 08/09/2005 Encounters Date Type Department Care Team Description 10/26/2024 4:00 PM EDT Office Visit [facility] Medicine [address] [phone] Giulia Garcia PA Routine physical examination (Primary Dx); Gastroesophageal reflux disease, unspecified whether esophagitis present; Mixed hyperlipidemia; Osteopenia, unspecified location; Anemia, unspecified type; Decreased hearing, unspecified laterality from Last 3 Months Immunizations Name Administration Dates Next Due Hepatitis B (Nndyrpp-A-Rwnet , Recombivax HB-Adult) 19yo and older 09/12/2010,03/07/2010,02/02/2010 Hepatitis B (Recombivax HB-D ialysis) 18yo and older 09/12/2010,03/07/2010,02/02/2010 Influenza trivalent, 0.5mL, preservative free (Fluarix; FluLaval; Fluzone) ages 6mo and older (Afluria) 3 years and older 03/06/2016,02/02/2015,01/22/2011,01/29 Influenza trivalent, MDCK, 0 .5mL, preservative free (Flucelvax) 6mo and older 01/12/2024 Influenza, Unspecified 02/09/2021,01/11/2020 MMR, measles mumps and [...] hips Depression, major, recurrent , in remission ([facility]/HCC V24) 06/29/2012 DX:Depression, major, recurr ent, in remission ([facility]) Bursitis of right hip 2014 DX:Bursiti s [...] Date Smoking Tobacco: Former Smokeless Tobacco: Never Comments:Smoked 1 ppd for ap prox 20 years, quit @ 32 y/o Alcohol Use Standard Drinks/Week Comments Not Currently [...] Sign Reading Time Taken Comments Blood Pressure 110/72 10/26/2024 3:57 PM EDT Pulse 76 10/26/2024 3:57 PM EDT Temperature 36.3 C (97.4 F) 10/26/2024 3:57 PM EDT Respiratory Rate 12 10/26/2024 3:57 PM EDT Oxygen Saturation - - Inhaled Oxygen Concentration - - Weight 80.3 kg (177 lb) 10/26/2024 3:57 PM EDT Height 163.8 cm (5' 4.5 ) 10/26/2024 3:57 PM EDT Body Mass Index 29.91 10/26/2024 3:57 PM EDT Plan of Treatment Upcoming Encounters Date Type Department Care Team (Late st Contact Info) Description 04/27/2025 8:30 AM EST Office Visit Adult Medicine [address] [phone] Anai Stoddard MD [address] [place] [address] 06/01/2025 4:00 PM EST Appointment Radiology Department - [address] [phone] Health Maintenance Due Date Last Done Comments Hepatitis A Vaccines (1 of 2 - Risk 2-dose series) 1985 HIV Screening 04/20/2022 Social Influencers of Health Screening 04/20/2022 Depression Screening 05/12/2024 Influenza Vaccine (#1) 2025 , 02/09/2021, 01/11/2020, Additional history exists Pneumococcal Vaccine: 50+ Years (2 of 2 - PCV) 05/11/2025 10/15/2013 Postponed from 10/15/2014 (Patient Refused) Breast Cancer Screening 05/31/2026 05/31/19, 06/13/2023, 05/19/2023, Additional history exists DTaP,Tdap,and Td Vaccines (3 - Td or Tdap) 09/16/2026 09/16/2016, 09/01/2006 Colorectal Cancer Screening: Colonoscopy 07/11/2027 07/10/2022, 07/10/2022 Cervical Cancer Screening: HPV 07/27/2029 07/27/2024, 05/19/2020 Cholesterol Screening (Lipid Panel) 11/08/2029 11/08/2024, 10/21/2023, 10/21/2023 Osteoporosis Screening (Bone Density Screening) 01/15/2037 01/15/2022 Varicella Vaccines Aged Out 01/31/2010 No longer eligible based on patient's age to complete this topic Hepatitis B Vaccines Completed 09/12/2010, 09/12/2010, 03/07/2010, Additional history exists Hepatitis C Screening Completed 01/28/2015 MMR Vaccines Aged Out 10/21/2018, 05/2009, 03/07/2010 No longer eligible based on patient's age to complete this topic Zoster Vaccines Completed 02/24/2019, 12/10, 01/31/2010 COVID-19 Vaccine Completed 01/12/2024, , 01/18/2022, Additional history exists HIB Vaccines Aged Out [...] Procedure Name Priority Date/Time Associated Diagnosis Comments CBC WITH AUTO DIFFERENTIAL Routine 11/08/2024 8:52 AM EDT Routine physical examination CBC AND DIFFERENTIAL Routine 11/08/2024 8:52 AM EDT Routine physical examination COMPREHENSIVE METABOLIC PANEL Routine 11/08/2024 8:52 AM EDT Routine physical examination HEMOGLOBIN A1C Routine 11/08/2024 8:52 AM EDT Routine physical examination LIPID PANEL WITH REFLEX TO DIRECT LDL Routine 11/08/2024 8:52 AM EDT Routine physical examination Mixed hyperlipidemia THYROID STIMULATING HORMONE WITH REFLEX TO FREE T4 AND FREE T3 Routine 11/08/2024 8:52 AM EDT Routine physical examination VITAMIN D 25 HYDROXY Routine 11/08/2024 8:52 AM EDT Osteopenia, unspecified location IRON AND TIBC Routine 11/08/2024 8:52 AM EDT Anemia, unspecified type FERRITIN Routine 11/08/2024 8:52 AM EDT Anemia, unspecified type HPV WITH REFLEX GENOTYPE Routine 07/27/2024 2:17 PM EDT Encounter for gynecological examination without abnormal finding MG MAMMO DIGITAL SCREENING W RUDOLPH BILAT Routine 05/31/2024 4:16 PM EST Encounter for screening mammogram for breast cancer HM COLONOSCOPY Routine 07/10/2022 DXA BONE DENSITY STUDY 1+ SITS AXIAL SKEL Routine 01/15/2022 4:05 PM EDT Personal history of (healed) traumatic fracture Family history of osteoporosis Personal history of nicotine dependence Asymptomatic menopausal state HEPATITIS C SCREENING Routine 01/28/2015 from Last 3 Months or Most Recently Relevant to Health Maintenance Results * Thyroid stimulating hormone with reflex to free t4 and free t3 (11/08/2024 8:52 AM EDT) TSH 0.52 0.40 - 4.00 mcIU/mL LAB CHEMISTRY METHOD 11/08/2024 3:42 PM EDT [facility] Blood Venous blood specimen / Unknown Venipuncture / Unknown 11/08/2024 8:52 AM EDT 11/08/2024 8:53 AM EDT us Giulia ESQUIVEL LAB BLOOD ORDERABLES Final Res ult [facility] [address] [place] [address], [place] [phone] * (ABNORMAL) Lipid panel with reflex to direct LDL (11/08/2024 8:52 AM EDT) Cholesterol 209(H) 0 - 200 mg/dL LAB CHEMISTRY METHOD 11/08/2024 1:56 PM EDT [facility] Triglycerides 85 0 - 150 mg/dL LAB CHEMISTRY METHOD 11/08/2024 1:56 PM EDT [facility] HDL 63 >=40 mg/dL LAB CHEMISTRY METHOD 11/08/2024 1:56 PM EDT [facility] LDL Calculated 129(H) 0 - 100 mg/dL LAB CHEMISTRY METHOD 11/08/2024 1:56 PM EDT [facility] VLDL Cholesterol Moe 17 mg/dL LAB CHEMISTRY METHOD 11/08/2024 1:56 PM EDT [facility] Non HDL Chol. (LDL+VLDL) 146(H) <145 mg/dL LAB CHEMISTRY METHOD 11/08/2024 1:56 PM EDT [facility] Chol/HDL Ratio 3.3 0.0 - 4.4 LAB CHEMISTRY METHOD 11/08/2024 1:56 PM EDT [facility] Blood Venous blood specimen / Unknown Venipuncture / Unknown 11/08/2024 8:52 AM EDT 11/08/2024 8:53 AM EDT Giulia ESQUIVEL LAB BLOOD ORDERABLES Final Res ult [facility] [address] [place] [address], * CBC auto differential (11/08/2024 8:52 AM EDT) WBC 6.0 4.8 - 10.8 K/mcL LAB HEMETOLOGY METHOD 11/08/2024 10:33 AM EDT [facility] RBC 4.30 3.80 - 4.80 M/mcL LAB HEMETOLOGY METHOD 11/08/2024 10:33 AM EDT [facility] Hemoglobin 12.9 11.5 - 16.0 g/dL LAB HEMETOLOGY METHOD 11/08/2024 10:33 AM EDT [facility] Hematocrit 40.3 35.0 - 47.0 % LAB HEMETOLOGY METHOD 11/08/2024 10:33 AM [facility] MCV 93.7 79.0 - 98.0 FL LAB HEMETOLOGY METHOD 11/08/2024 10:33 AM [facility] MCH 30.0 27.0 - 32.0 pcg LAB HEMETOLOGY METHOD 11/08/2024 10:33 AM [facility] MCHC 32.0 32.0 - 37.0 g/dL LAB HEMETOLOGY METHOD 11/08/2024 10:33 AM [facility] RDW 12.4 11.0 - 15.0 % LAB HEMETOLOGY METHOD 11/08/2024 10:33 AM [facility] Platelets 277 130 - 400 K/mcL LAB HEMETOLOGY METHOD 11/08/2024 10:33 AM [facility] MPV 9.9 7.0 - 11.0 FL LAB HEMETOLOGY METHOD 11/08/2024 10:33 AM [facility] NRBC 0.0 <1.0 % LAB HEMETOLOGY METHOD 11/08/2024 10:33 AM [facility] NRBC Absolute 0.00 <0.10 K/mcL LAB HEMETOLOGY METHOD 11/08/2024 10:33 AM [facility] Neutrophils Relative 64.2 % LAB HEMETOLOGY METHOD 11/08/2024 10:33 AM [facility] Lymphocytes Relative 28.0 % LAB HEMETOLOGY METHOD 11/08/2024 10:33 AM [facility] Monocytes Relative 5.0 % LAB HEMETOLOGY METHOD 11/08/2024 10:33 AM [facility] Eosinophils Relative 2.0 % LAB HEMETOLOGY METHOD 11/08/2024 10:33 AM EDT [facility] Basophils Relative 0.5 % LAB HEMETOLOGY METHOD 11/08/2024 10:33 AM EDT [facility] Immature Granulocytes Relative 0.3 % LAB HEMETOLOGY METHOD 11/08/2024 10:33 AM EDT [facility] Neutrophils Absolute 3.83 1.50 - 7.00 K/mcL LAB HEMETOLOGY METHOD 11/08/2024 10:33 AM EDT [facility] Lymphocytes Absolute 1.67 1.00 - 5.00 K/mcL LAB HEMETOLOGY METHOD 11/08/2024 10:33 AM EDT [facility] Monocytes Absolute 0.30 0.20 - 1.00 K/mcL LAB HEMETOLOGY METHOD 11/08/2024 10:33 AM EDT [facility] Eosinophils Absolute 0.12 0.00 - 0.50 K/mcL LAB HEMETOLOGY METHOD 11/08/2024 10:33 AM EDT [facility] Basophils Absolute 0.03 0.00 - 0.20 K/mcL LAB HEMETOLOGY METHOD 11/08/2024 10:33 AM EDT [facility] Immature Granulocytes Absolute 0.02 0.00 - 0.03 K/mcL LAB HEMETOLOGY METHOD 11/08/2024 10:33 AM EDT [facility] Blood Venous blood specimen / Unknown Venipuncture / Unknown 11/08/2024 8:52 AM EDT 11/08/2024 8:53 AM EDT us Giulia ESQUIVEL LAB BLOOD ORDERABLES Final Res ult [facility] [address] [place] [address], * Iron and TIBC (11/08/2024 8:52 AM EDT) Iron 82 40 - 150 mcg/dL LAB CHEMISTRY METHOD 11/08/2024 1:56 PM EDT [facility] TIBC 298 250 - 450 mcg/dL LAB CHEMISTRY METHOD 11/08/2024 1:56 PM EDT [facility] Iron Saturation 28 15 - 50 % LAB CHEMISTRY METHOD 11/08/2024 1:56 PM EDT [facility] Blood Venous blood specimen / Unknown Venipuncture / Unknown 11/08/2024 8:52 AM EDT 11/08/2024 8:53 AM EDT Giulia ESQUIVEL LAB BLOOD ORDERABLES Final Res ult Performing Organization Address [facility]/ZIP Co de Phone Number [facility] [address] [place] [address], [place] [phone] * Vitamin D 25 hydroxy (11/08/2024 8:52 AM EDT) Pathologist [facility] Vit D, 25-Hydroxy 33.5 30.0 - 80.0 ng/mL LAB CHEMISTRY METHOD 11/08/2024 3:42 PM EDT [facility] Blood Venous blood specimen / Unknown Venipuncture / Unknown 11/08/2024 8:52 AM EDT 11/08/2024 8:53 AM EDT Giulia ESQUIVEL LAB BLOOD ORDERABLES Final Res ult [facility] [address] [place] [address], [place] [phone] * Hemoglobin A1c (11/08/2024 8:52 AM EDT) [facility] Hemoglobin A1C 6.0 <6.5 % LAB CHEMISTRY METHOD 11/08/2024 12:44 PM EDT [facility] Mean Bld Glu Estim. 126 mg/dL LAB CHEMISTRY METHOD 11/08/2024 12:44 PM EDT [facility] Blood Venous blood specimen / Unknown Venipuncture / Unknown 11/08/2024 8:52 AM EDT 11/08/2024 8:53 AM EDT Giulia ESQUIVEL LAB BLOOD ORDERABLES Final Res ult [facility] [address] [place] [address], [place] [phone] * Ferritin (11/08/2024 8:52 AM EDT) Ferritin 113 8 - 252 ng/mL LAB CHEMISTRY METHOD 11/08/2024 1:56 PM EDT [facility] Blood Venous blood specimen / Unknown Venipuncture / Unknown 11/08/2024 8:52 AM EDT 11/08/2024 8:53 AM EDT Giulia ESQUIVEL LAB BLOOD ORDERABLES Final Res ult [facility] [address] [place] [address], [place] [phone] * Comprehensive metabolic panel (11/08/2024 8:52 AM EDT) Sodium 136 133 - 145 mmol/L LAB CHEMISTRY METHOD 11/08/2024 1:56 PM EDT [facility] Potassium 4.5 3.5 - 5.5 mmol/L LAB CHEMISTRY METHOD 11/08/2024 1:56 PM EDT [facility] Chloride 102 96 - 110 mmol/L LAB CHEMISTRY METHOD 11/08/2024 1:56 PM EDT [facility] CO2 28 21 - 32 mmol/L LAB CHEMISTRY METHOD 11/08/2024 1:56 PM EDT [facility] Anion Gap 6 3 - 11 LAB CHEMISTRY METHOD 11/08/2024 1:56 PM [facility] Glucose 95 70 - 100 mg/dL LAB CHEMISTRY METHOD 11/08/2024 1:56 PM [facility] BUN 12 5 - 25 mg/dL LAB CHEMISTRY METHOD 11/08/2024 1:56 PM [facility] Creatinine 0.71 0.50 - 1.10 mg/dL LAB CHEMISTRY METHOD 11/08/2024 1:56 PM [facility] eGFR 99 >=60 mL/min/1. 73m2 LAB CHEMISTRY METHOD 11/08/2024 1:56 PM [facility] Comment:Calculation based on the Chronic Kidney Disease Epidemiology Collaboration (CKD-EPI) equation refit without adjustment for race. BUN/Creatinine Ratio 16.9 LAB CHEMISTRY METHOD 11/08/2024 1:56 PM [facility] Calcium 8.6 8.5 - 10.5 mg/dL LAB CHEMISTRY METHOD 11/08/2024 1:56 PM [facility] AST (SGOT) 14 10 - 42 unit/L LAB CHEMISTRY METHOD 11/08/2024 1:56 PM [facility] ALT (SGPT) 25 10 - 60 unit/L LAB CHEMISTRY METHOD 11/08/2024 1:56 PM [facility] Alkaline Phosphatase 79 42 - 121 unit/L LAB CHEMISTRY METHOD 11/08/2024 1:56 PM [facility] Total Protein 6.5 6.0 - 8.0 g/dL LAB CHEMISTRY METHOD 11/08/2024 1:56 PM [facility] Albumin 3.9 3.2 - 5.0 g/dL LAB CHEMISTRY METHOD 11/08/2024 1:56 PM [facility] Total Bilirubin 0.3 0.0 - 1.4 mg/dL LAB CHEMISTRY METHOD 11/08/2024 1:56 PM [facility] Blood Venous blood specimen / Unknown Venipuncture / Unknown 11/08/2024 8:52 AM EDT 11/08/2024 8:53 AM EDT Giulia ESQUIVEL LAB BLOOD ORDERABLES Final Res ult Performing Organization Address City/[facility]/ZIP Co de Phone Number [facility] [address] [place] [address], [place] [phone] * HPV with reflex genotype (07/27/2024 2:17 PM EDT) HPV Negative Negative LAB MICROBIOLOGY METHOD 07/28/2024 2:07 PM EDT [facility] Brushing/Spatula Cervix uteri structure / Unknown 07/27/2024 2:17 PM EDT 07/28/2024 7:34 AM EDT Erin Ballard CNM LAB MOLECULAR DIAGNOSTICS ORDE RABLES Final Result Performing Organization Address [facility]/ZIP Co de Phone Number [facility] [address] [place] [address], [place] [phone] * MG Mammo Digital Screening w Rudolph bilat (05/31/2024 4:16 PM EST) Anatomical Region Laterality Modality Breast Bilateral Mammography 06/01/2024 4:41 PM EST Impressions 06/01/2024 4:46 PM EST 1. No mammographic evidence of malignancy 2. Scattered fibroglandular tissue BI-RADS CATEGORY: 2 - BENIGN RECOMMENDATION: Screening bilateral mammogram is recommended in 1 year. Mammo Location: [facility], [address] [place] [address], [id number], . -------- FINAL REPORT -------- Dictated By: James Dao Dictated Date: 06/01/2024 16:41 ET Assigned Physician: James Dao Reviewed and Electronically Signed By: James Dao Signed Date: 06/01/2024 16:46 ET Workstation ID: [id number] Transcribed By: Self Edit Transcribed Date: 06/01/2024 [...] distortion identified. Stable typically benign parenchymal asymmetries. Scattered typically benign calcifications. BREAST DENSITY: B [...] is recommended in 1 year. Mammo Location: [facility], [address] [place] [address], [id number], . -------- FINAL REPORT -------- Dictated By: James Dao Dictated Date: 06/01/2024 16:41 ET Assigned Physician: James Dao Reviewed and Electronically Signed By: James Dao Signed Date: 06/01/2024 16:46 ET Workstation ID: [id number] Transcribed By: Self Edit Transcribed Date: 06/01/2024 16:41 ET Anai Stoddard MD IM BI PROCEDURES Final Result * Colonoscopy (07/10/2022) HM Colonoscopy no interpretation , abstracted Anatomical Region [...] IMPRESSION: IMPRESSION: Osteopenia by WHO criteria. [facility] Department of Internal Medicine recommends using National [...] screening schedule based on marleni Ruiz., [facility] May 30, 2011 for patients with osteopenia [...] IMPRESSION: IMPRESSION: Osteopenia by WHO criteria. [facility] Department of Internal Medicine recommendsusing National Osteoporosis [...] alternative screening schedule based on marleni Ruiz., [facility]2011 for patients with osteopenia (based on hip BMD T-score) is as follows: * advanced osteopenia (T scores -2.00 to -2.49), BMD testing every year * moderate osteopenia (T scores -1.50 to -1.99), BMD testing every 5years mild osteopenia or normal BMD (T scores -1.50 and higher), BMD testingevery 15 years us Aline ESQUIVEL IMG DXA PROCEDURES Final R esult * Hepatitis C Screening (01/28/2015) [facility] Hepatitis C Screening abstracted us Historical Provider MD HEALTH MAINTENANCE Final Result from Last 3 Months or Most Recently Relevant to Health Maintenance Insurance [facility] [employer] Care Teams Machine Setter And Repairer Relationship Specialty Start Date End Date Anai Stoddard MD [address] [place] [address] PCP - General Internal Medicine 07/26/24
--- OUTSIDE RECORDS SUMMARY | 2024-12-06 15:34 | XMS_ITS | Clinical Summary ---
Author Organization [facility] Address [address] [place] [address] Care Team Providers Care Staff Editor Name Role Phone Unavailable Primary Care Provider [...] 66 01/19/2021 1:56 PM EDT Temperature 37.1 C (98.8 F) 01/19/2021 1:56 PM EDT Respiratory Rate - - Oxygen Saturation 98% [...] Zoster (Shingles) Vaccine (1 of 2) 02/23/2016 COVID-19 Vaccine (3 - season) 2024, 08/15/2020 Influenza Vaccine 12/10/2024 02/05/2021 [place] [facility] [place]
== END 2024-12-06 15:03 | disposition home or self-care (01) ==
LOC: HO.SH 15:02
PROVIDERS: Visit Provider Physician Assistant
DX: Z01.118 Encounter for examination of ears and hearing with other abnormal findings (principal); H91.93 Unspecified hearing loss, bilateral
CPT/HCPCS: 92557; 92567

== ENCOUNTER 2025-01-06 18:02 | Outpatient (AMB) | payer OTHER, SELFPAY ==
--- NOTE | 2025-01-06 16:30 | A.OFFPSYCH_ITS ---
Intake Intake Visit Reasons: depression Allergies sulfamethoxazole (From BACTRIM) Allergy (Mild, Unverified 01/27/20 17:29) RASH tetracycline (TETRACYCLINE) Allergy (Mild, Unverified 01/27/20 17:29) BRUISING trimethoprim (From BACTRIM) Allergy (Mild, Unverified 01/27/20 17:29) RASH Medication List - Last Reconciled 01/06/25 by Jayne Diez, ZENIA bupropion HCl XL (Wellbutrin XL) 150 mg PO QAM duloxetine 30 mg PO DAILY fluticasone propionate 110 mcg/actuation inhalation hydroxyzine pamoate 25 mg PO BID PRN pantoprazole 40 mg PO DAILY risperidone (Risperdal) 1 mg PO DAILY trazodone 100 mg PO BEDTIME HPI- Psychiatric Chief Complaint: depression HPI Narrative: pt reports improvement with increase in risperdal back to 1mg daily; her mood is much improved; she is coping well; she is less irritable and overwhelmed; she denies side effects. She denies SI or HI. She is functioning well at home nd work; she recently had annual physical at [facility] in [place]; she reports her annual blood work showed nomral blood sugar and normal cholesterol reange and slightly elevated LDL. I do not have copy of labs or pphysical but will contaact [facility] to try to get copy. Past Psychiatric History: first depression in 2004 when brother due to cirrhosis, age 36 (ETOH/drugs) mother started drinking after, pt felt like she lost her brother and mother; moved out in 2019 after several years of conflict No IPLOC or PHP saw Dr Rivera in past Medication Trials: prozac - didn't help, nauseous Wellbutrin - no sex drive latuda - wasn't good, weird mouth movement felt weird Subjective Subjective Subjective Medication Compliance: Yes Side effects from medications: No Review of Systems Medical Review of Systems: unchanged Mental Status Exam Mental Status Exam Patient Appearance: Well Grooomed Patient Orientation: Person, Place, Time and Situation Level of Consciousness: Awake Patient Behavior: Appropriate and Cooperative Mood Description: Calm and Happy Affect Description: Happy Patient Cognition Impaired: No Ability to Follow Directions: Good Speech Pattern: Clear and Soft-Spoken Memory Description: Intact Hallucinations: None Delusions: Not Present Thought Process: Intact and Goal Oriented Thought Content: positive for Intact and positive for Goal Oriented Judgement: Good Telehealth Telehealth Telehealth Platform: Other (please specify) ([email or web address]) Location of provider rendering services: practice address Location of patient: address on file Patient Identification confirmed using: Name, : Yes Telehealth method: video Patient verbally consented to treatment: Yes Patient verbally consented to billing insurance company: Yes Patient informed of any privacy concerns related to visit: Yes Minutes spent on Phone/Video with Pt.: 25 Assessment and Plan Assessment & Plan (1) JOE (generalized anxiety disorder): Status: Acute Code(s): F41.1 - Generalized anxiety disorder (2) Major depression, recurrent, full remission: Status: Acute Code(s): F33.42 - Major depressive disorder, recurrent, in full remission Plan continue meds per below follow up in 3 months Medications: Refilled bupropion HCl XL (Wellbutrin XL) 150 mg PO QAM 90 tabs 1RF hydroxyzine pamoate 25 mg PO BID PRN 180 caps 2RF itching trazodone 100 mg PO BEDTIME 90 tabs 1RF duloxetine 30 mg PO DAILY 90 caps 1RF risperidone (Risperdal) 1 mg PO DAILY 90 tabs 0RF Counseling and coordination of Care Pt. Self Management counseling: Maintenance-social rhythm, Mod caffeine/ETOH intake, Nutrition education and improvement, Sleep hygiene and General coping skills Medication management counseling: Effectiveness, Side effects, Dosing range, Duration, Drug interaction and Adherence Diagnosis and Prognosis Counseling: Accuracy of diagnosis, Prognosis over time, Problematic behaviors secondary to diagnosis and Adequacy of current interventions Details: I spent 30 minutes reviewing the record, seeing the patient and documenting in the medical record. Counseling provided to the patient/caregiver as outlined below. Addressed patient/caregiver concerns regarding current medication regime including effective adherence. Addressed patient/caregiver concerns regarding diagnosis and prognosis including accuracy of diagnosis, prognosis over time, impact of diagnosis. Addressed patient/caregiver concerns regarding impact of recent stressors. [facility] Medical History (Updated 07/25/23 @ 16:00 by Jayne Diez APRN) Osteoarthritis Hyponatremia Surgical History (Updated 07/25/23 @ 15:57 by Jayne Diez APRN) H/O bilateral hip replacements Social History: grew up in [place] lived with mother and father, moved to [place], parents with patient was 89 brother who at age 36stepfather entered family when patient was 17separated from and 2 step children (estranged from) couldn't have children of own mom and stepfather are supportive Substance History: none Trauma History: none Coding Level of Care Code Tele Est Pt Level 4 (13536) Diagnoses JOE (generalized anxiety disorder) F41.1 Major depression, recurrent, full remission F33.42
--- OUTSIDE RECORDS SUMMARY | 2025-01-06 18:04 | XMS_ITS | Clinical Summary ---
Author Organization [facility] [address] [facility] Address [address] [place] [address] Phone Care Team Providers Care Director Of Operations Name Role Phone Anai Stoddard MD Primary Care Provider [phone] Allergies Active Allergy Reactions Criticality Noted Date [...] disorder, r ecurrent episode, in partial remission (CMS/[facility] V24) 08/14/2015 Fallen arches 08/08/2011 Acne 08/03/2010 Anemia 03/18/2008 Raynaud's syndrome 09/01/2006 Overview (03/22/2024): improved Allergic rhinitis 08/09/2005 Asthma 08/09/2005 Encounters Date Type Department Care Team Description 10/26/2024 4:00 PM EDT Office Visit Formerly [facility] Medicine [address] [phone] Giulia Garcia PA Routine physical examination (Primary Dx); Gastroesophageal reflux disease, unspecified whether esophagitis present; Mixed hyperlipidemia; Osteopenia, unspecified location; Anemia, unspecified type; Decreased hearing, unspecified laterality from Last 3 Months Immunizations Name Administration Dates Next Due Hepatitis B (Qdpzxrl-E-Badcd , Recombivax HB-Adult) 19yo and older 09/12/2010,03/07/2010,02/02/2010 [...] hips Depression, major, recurrent , in remission ([facility]/HCC V24) 06/29/2012 DX:Depression, major, recurr ent, in remission ([facility]) Bursitis of right hip 2014 DX:Bursiti s [...] Sexual Orientation Not on file Obstetrics History * This document contains information received from the source organization and may not represent a complete record from that organization. Para Term AB IAB SAB Ectopic Multiple Livin g Live Births 1 0 0 Date Outcome GA Total Labor Labor/2nd/3rd Weight Sex Type Anes PTL Janie A1 A5 Name Clin Last Filed Vital Signs Vital Sign Reading [...] 8:30 AM EST Office Visit Adult Medicine [address] [phone] Anai Stoddard MD [address] [place] [address] 06/01/2025 4:00 PM EST Appointment Radiology Department - [address] [phone] Health Maintenance Due Date Last Done Comments [...] LAB CHEMISTRY METHOD 11/08/2024 3:42 PM EDT [facility] Blood Venous blood specimen / Unknown Venipuncture / Unknown 11/08/2024 8:52 AM EDT 11/08/2024 8:53 AM EDT us Giulia ESQUIVEL LAB BLOOD ORDERABLES Final Res ult [facility] [address] [place] [address], * (ABNORMAL) Lipid panel with reflex to direct LDL (11/08/2024 8:52 AM EDT) Cholesterol 209(H) 0 - 200 mg/dL LAB CHEMISTRY METHOD 11/08/2024 1:56 PM EDT [facility] Triglycerides 85 0 - 150 mg/dL LAB CHEMISTRY METHOD 11/08/2024 1:56 PM EDT [facility] HDL 63 >=40 mg/dL LAB CHEMISTRY METHOD 11/08/2024 1:56 PM EDT [facility] LDL Calculated 129(H) 0 - 100 mg/dL LAB CHEMISTRY METHOD 11/08/2024 1:56 PM EDT [facility] VLDL Cholesterol Moe 17 mg/dL LAB CHEMISTRY METHOD 11/08/2024 1:56 PM EDT [facility] Non HDL Chol. (LDL+VLDL) 146(H) <145 mg/dL LAB CHEMISTRY METHOD 11/08/2024 1:56 PM EDT [facility] Chol/HDL Ratio 3.3 0.0 - 4.4 LAB CHEMISTRY METHOD 11/08/2024 1:56 PM EDT [facility] Blood Venous blood specimen / Unknown Venipuncture / Unknown 11/08/2024 8:52 AM EDT 11/08/2024 8:53 AM EDT Giulia ESQUIVEL LAB BLOOD ORDERABLES Final Res ult [facility] [address] [place] [address], * CBC auto differential (11/08/2024 8:52 AM EDT) WBC 6.0 4.8 - 10.8 K/mcL LAB HEMETOLOGY METHOD 11/08/2024 10:33 AM EDT [facility] RBC 4.30 3.80 - 4.80 M/mcL LAB HEMETOLOGY METHOD 11/08/2024 10:33 AM EDT [facility] Hemoglobin 12.9 11.5 - 16.0 g/dL LAB HEMETOLOGY METHOD 11/08/2024 10:33 AM [facility] Hematocrit 40.3 35.0 - 47.0 % LAB HEMETOLOGY METHOD 11/08/2024 10:33 AM [facility] MCV 93.7 79.0 - 98.0 FL LAB HEMETOLOGY METHOD 11/08/2024 10:33 AM [facility] MCH 30.0 27.0 - 32.0 pcg LAB HEMETOLOGY METHOD 11/08/2024 10:33 AM [facility] MCHC 32.0 32.0 - 37.0 g/dL LAB HEMETOLOGY METHOD 11/08/2024 10:33 AM [facility] RDW 12.4 11.0 - 15.0 % LAB HEMETOLOGY METHOD 11/08/2024 10:33 AM [facility] Platelets 277 130 - 400 K/mcL LAB HEMETOLOGY METHOD 11/08/2024 10:33 AM [facility] MPV 9.9 7.0 - 11.0 FL LAB HEMETOLOGY METHOD 11/08/2024 10:33 AM [facility] NRBC 0.0 <1.0 % LAB HEMETOLOGY METHOD 11/08/2024 10:33 AM [facility] NRBC Absolute 0.00 <0.10 K/mcL LAB HEMETOLOGY METHOD 11/08/2024 10:33 AM [facility] Neutrophils Relative 64.2 % LAB HEMETOLOGY METHOD 11/08/2024 10:33 AM [facility] Lymphocytes Relative 28.0 % LAB HEMETOLOGY METHOD 11/08/2024 10:33 AM [facility] Monocytes Relative 5.0 % LAB HEMETOLOGY METHOD 11/08/2024 10:33 AM [facility] Eosinophils Relative 2.0 % LAB HEMETOLOGY METHOD 11/08/2024 10:33 AM EDT [facility] Basophils Relative 0.5 % LAB HEMETOLOGY METHOD 11/08/2024 10:33 AM EDT [facility] Immature Granulocytes Relative 0.3 % LAB HEMETOLOGY METHOD 11/08/2024 10:33 AM EDT [facility] Neutrophils Absolute 3.83 1.50 - 7.00 K/mcL LAB HEMETOLOGY METHOD 11/08/2024 10:33 AM EDT [facility] Lymphocytes Absolute 1.67 1.00 - 5.00 K/mcL LAB HEMETOLOGY METHOD 11/08/2024 10:33 AM EDT [facility] Monocytes Absolute 0.30 0.20 - 1.00 K/mcL LAB HEMETOLOGY METHOD 11/08/2024 10:33 AM EDT [facility] Eosinophils Absolute 0.12 0.00 - 0.50 K/mcL LAB HEMETOLOGY METHOD 11/08/2024 10:33 AM EDT [facility] Basophils Absolute 0.03 0.00 - 0.20 K/mcL LAB HEMETOLOGY METHOD 11/08/2024 10:33 AM EDT [facility] Immature Granulocytes Absolute 0.02 0.00 - 0.03 K/mcL LAB HEMETOLOGY METHOD 11/08/2024 10:33 AM EDT [facility] Blood Venous blood specimen / Unknown Venipuncture / Unknown 11/08/2024 8:52 AM EDT 11/08/2024 8:53 AM EDT us Giulia ESQUIVEL LAB BLOOD ORDERABLES Final Res ult [facility] [address] [place] [address], * Iron and TIBC (11/08/2024 8:52 AM EDT) Iron 82 40 - 150 mcg/dL LAB CHEMISTRY METHOD 11/08/2024 1:56 PM EDT [facility] TIBC 298 250 - 450 mcg/dL LAB CHEMISTRY METHOD 11/08/2024 1:56 PM EDT [facility] Iron Saturation 28 15 - 50 % LAB CHEMISTRY METHOD 11/08/2024 1:56 PM EDT [facility] Blood Venous blood specimen / Unknown Venipuncture / Unknown 11/08/2024 8:52 AM EDT 11/08/2024 8:53 AM EDT Giulia ESQUIVEL LAB BLOOD ORDERABLES Final Res ult Performing Organization Address [facility]/ZIP Co de Phone Number [facility] [address] [place] [address], * Vitamin D 25 hydroxy (11/08/2024 8:52 AM EDT) Pathologist [facility] Vit D, 25-Hydroxy 33.5 30.0 - 80.0 ng/mL LAB CHEMISTRY METHOD 11/08/2024 3:42 PM EDT [facility] Blood Venous blood specimen / Unknown Venipuncture / Unknown 11/08/2024 8:52 AM EDT 11/08/2024 8:53 AM EDT Giulia ESQUIVEL LAB BLOOD ORDERABLES Final Res ult Performing Organization Address City/[facility]/ZIP Co de Phone Number [facility] [address] [place] [address], [place] [phone] * Hemoglobin A1c (11/08/2024 8:52 AM EDT) Pathologist [facility] Hemoglobin A1C 6.0 <6.5 % LAB CHEMISTRY METHOD 11/08/2024 12:44 PM EDT [facility] Mean Bld Glu Estim. 126 mg/dL LAB CHEMISTRY METHOD 11/08/2024 12:44 PM EDT [facility] Blood Venous blood specimen / Unknown Venipuncture / Unknown 11/08/2024 8:52 AM EDT 11/08/2024 8:53 AM EDT Giulia ESQUIVEL LAB BLOOD ORDERABLES Final Res ult Performing Organization Address City/[facility]/ZIP Co de Phone Number [facility] [address] [place] [address], [place] [phone] * Ferritin (11/08/2024 8:52 AM EDT) [facility] Ferritin 113 8 - 252 ng/mL LAB CHEMISTRY METHOD 11/08/2024 1:56 PM EDT [facility] Blood Venous blood specimen / Unknown Venipuncture / Unknown 11/08/2024 8:52 AM EDT 11/08/2024 8:53 AM EDT us Giulia ESQUIVEL LAB BLOOD ORDERABLES Final Res ult Performing Organization Address [facility] Co de Phone Number [facility] [address] [place] [address], [place] [phone] * Comprehensive metabolic panel (11/08/2024 8:52 AM EDT) [facility] Sodium 136 133 - 145 mmol/L LAB CHEMISTRY METHOD 11/08/2024 1:56 PM EDT [facility] Potassium 4.5 3.5 - 5.5 mmol/L LAB CHEMISTRY METHOD 11/08/2024 1:56 PM EDT [facility] Chloride 102 96 - 110 mmol/L LAB CHEMISTRY METHOD 11/08/2024 1:56 PM EDT [facility] CO2 28 21 - 32 mmol/L LAB CHEMISTRY METHOD 11/08/2024 1:56 PM EDT [facility] Anion Gap 6 3 - 11 LAB CHEMISTRY METHOD 11/08/2024 1:56 PM [facility] Glucose 95 70 - 100 mg/dL LAB CHEMISTRY METHOD 11/08/2024 1:56 PM [facility] BUN 12 5 - 25 mg/dL LAB CHEMISTRY METHOD 11/08/2024 1:56 PM [facility] Creatinine 0.71 0.50 - 1.10 mg/dL LAB CHEMISTRY METHOD 11/08/2024 1:56 PM [facility] eGFR 99 >=60 mL/min/1. 73m2 LAB CHEMISTRY METHOD 11/08/2024 1:56 PM [facility] Comment:Calculation based on the Chronic Kidney Disease Epidemiology Collaboration (CKD-EPI) equation refit without adjustment for race. BUN/Creatinine Ratio 16.9 LAB CHEMISTRY METHOD 11/08/2024 1:56 PM [facility] Calcium 8.6 8.5 - 10.5 mg/dL LAB CHEMISTRY METHOD 11/08/2024 1:56 PM [facility] AST (SGOT) 14 10 - 42 unit/L LAB CHEMISTRY METHOD 11/08/2024 1:56 PM [facility] ALT (SGPT) 25 10 - 60 unit/L LAB CHEMISTRY METHOD 11/08/2024 1:56 PM [facility] Alkaline Phosphatase 79 42 - 121 unit/L LAB CHEMISTRY METHOD 11/08/2024 1:56 PM [facility] Total Protein 6.5 6.0 - 8.0 g/dL LAB CHEMISTRY METHOD 11/08/2024 1:56 PM [facility] Albumin 3.9 3.2 - 5.0 g/dL LAB CHEMISTRY METHOD 11/08/2024 1:56 PM [facility] Total Bilirubin 0.3 0.0 - 1.4 mg/dL LAB CHEMISTRY METHOD 11/08/2024 1:56 PM EDT [facility] Blood Venous blood specimen / Unknown Venipuncture / Unknown 11/08/2024 8:52 AM EDT 11/08/2024 8:53 AM EDT Giulia ESQUIVEL LAB BLOOD ORDERABLES Final Res ult [facility] [address] [place] [address], [place] [phone] * HPV with reflex genotype (07/27/2024 2:17 PM EDT) HPV Negative Negative LAB MICROBIOLOGY METHOD 07/28/2024 2:07 PM EDT [facility] Brushing/Spatula Cervix uteri structure / Unknown 07/27/2024 2:17 PM EDT 07/28/2024 7:34 AM EDT Erin Ballard CNM LAB MOLECULAR DIAGNOSTICS ORDE RABLES Final Result [facility] [address] [place] [address], [place] [phone] * MG Mammo Digital Screening w Rudolph bilat (05/31/2024 4:16 PM EST) Anatomical Region Laterality Modality Breast Bilateral Mammography 06/01/2024 4:41 PM EST Impressions 06/01/2024 4:46 PM EST 1. No mammographic evidence of malignancy 2. Scattered fibroglandular tissue BI-RADS CATEGORY: 2 - BENIGN RECOMMENDATION: Screening bilateral mammogram is recommended in 1 year. Mammo Location: [facility], [address] [place] [address], [address], . -------- FINAL REPORT -------- Dictated By: James Dao Dictated Date: 06/01/2024 16:41 ET Assigned Physician: James Dao Reviewed and Electronically Signed By: James Dao Signed Date: 06/01/2024 16:46 ET Workstation ID: [id number] Transcribed By: Self Edit Transcribed Date: 06/01/2024 [...] is recommended in 1 year. Mammo Location: [facility], [address] [place] [address], [address], . -------- FINAL REPORT -------- Dictated By: James Dao Dictated Date: 06/01/2024 16:41 ET Assigned Physician: James Dao Reviewed and Electronically Signed By: James Dao Signed Date: 06/01/2024 16:46 ET Workstation ID: [id number] Transcribed By: Self Edit Transcribed Date: 06/01/2024 16:41 ET Anai Stoddard MD IMG BI PROCEDURES Final Result * Colonoscopy (07/10/2022) Colonoscopy no interpretation [...] IMPRESSION: IMPRESSION: Osteopenia by WHO criteria. [facility] Department of Internal Medicine recommends using [...] alternative screening schedule based on marleni Ruiz., [facility] May 30, 2011 for patients with osteopenia [...] IMPRESSION: IMPRESSION: Osteopenia by WHO criteria. [facility] Department of Internal Medicine recommendsusing National [...] alternative screening schedule based on marleni Ruiz., NEJMJanuary 2011 for patients with osteopenia (based on [...] R esult * Hepatitis C Screening (01/28/2015) [facility] Hepatitis C Screening abstracted us Historical Provider HEALTH MAINTENANCE Final Result from Last 3 Months or Most Recently Relevant to Health Maintenance Insurance [facility] [employer] Care Teams Director Of Operations Relationship Specialty Start Date End Date Anai Stoddard MD [address] [place] [id number] PCP - General Internal Medicine 07/26/24
--- OUTSIDE RECORDS SUMMARY | 2025-01-06 18:04 | XMS_ITS | Clinical Summary ---
Author Organization [facility] Address [address] [place] [address] Care Team Providers Care Platen Press Feeder Name Role Phone Unavailable Primary Care Provider [...] 2024, 08/15/2020 Influenza Vaccine 12/10/2024 02/05/2021 Insurance [facility]
== END 2025-01-06 18:03 | disposition home or self-care (01) ==
LOC: HO.HOP 18:02
PROVIDERS: PCP Internal Medicine; Visit Provider Clinical Nurse Specialist Psychiatric/Mental Health
DX: F41.1 Generalized anxiety disorder (principal); F33.42 Major depressive disorder, recurrent, in full remission
CPT/HCPCS: 99214

== ENCOUNTER 2025-04-04 17:02 | Outpatient (AMB) | payer OTHER, SELFPAY ==
--- NOTE | 2025-04-04 16:32 | MHC.OFFVISPS ---
Intake Intake Visit Reasons: depression Stockbroker Required: No Allergies sulfamethoxazole (From BACTRIM) Allergy (Mild, Unverified 01/27/20 17:29) RASH tetracycline (TETRACYCLINE) Allergy (Mild, Unverified 01/27/20 17:29) BRUISING trimethoprim (From BACTRIM) Allergy (Mild, Unverified 01/27/20 17:29) RASH Medication List - Last Reconciled 04/04/25 by Jayne Diez, EZNIA bupropion HCl XL (Wellbutrin XL) 150 mg PO QAM duloxetine 30 mg PO DAILY fluticasone propionate 110 mcg/actuation inhalation hydroxyzine pamoate 25 mg PO BID PRN pantoprazole 40 mg PO DAILY risperidone (Risperdal) 1 mg PO DAILY trazodone 100 mg PO BEDTIME HPI- Psychiatric Chief Complaint: depression HPI Narrative: Pt seen for follow up re: depression and anxiety. she reports a very difficult few months; her mother became suddenly ill with kidney failure, was hospitalized and started on dialysis. Her mother had to move to [facility] and patient helping with that transition including cleaning out house. Pt reports although difficult she feels she is coping well; she reports she is glad she went back up on the risperdal as she feels it helps her mood and decreases rumiination. she will see PCP next month nd have blood work done. No SI or HI. Past Psychiatric History: first depression in 2004 when brother due to cirrhosis, age 36 (ETOH/drugs) mother started drinking after, pt felt like she lost her brother and mother; moved out in 2019 after several years of conflict No IPLOC or PHP saw Dr Rivera in past Medication Trials: prozac - didn't help, nauseous Wellbutrin - no sex drive latuda - wasn't good, weird mouth movement felt weird Subjective Subjective Medication Compliance: Yes Side effects from medications: No Review of Systems Medical Review of Systems: unchanged Mental Status Exam Mental Status Exam Patient Appearance: Well Grooomed Patient Orientation: Person, Place, Time and Situation Level of Consciousness: Awake Patient Behavior: Appropriate and Cooperative Mood Description: Calm and Happy Affect Description: Happy Patient Cognition Impaired: No Ability to Follow Directions: Good Speech Pattern: Clear and Soft-Spoken Memory Description: Intact Hallucinations: None Delusions: Not Present Thought Process: Intact and Goal Oriented Thought Content: positive for Intact and positive for Goal Oriented Judgement: Good Telehealth Telehealth Telehealth Platform: [employer] Location of provider rendering services: practice address Location of patient: address on file Patient Identification confirmed using: Name, : Yes Telehealth method: video Patient verbally consented to treatment: Yes Patient verbally consented to billing insurance company: Yes Patient informed of any privacy concerns related to visit: Yes Minutes spent on Phone/Video with Pt.: 25 Assessment and Plan Assessment & Plan (1) JOE (generalized anxiety disorder): Status: Acute Code(s): F41.1 - Generalized anxiety disorder (2) Major depression, recurrent, full remission: Status: Acute Code(s): F33.42 - Major depressive disorder, recurrent, in full remission Plan continue meds per below follow up in 3 months Medications: Refilled duloxetine 30 mg PO DAILY 90 caps 1RF risperidone (Risperdal) 1 mg PO DAILY 90 tabs 0RF bupropion HCl XL (Wellbutrin XL) 150 mg PO QAM 90 tabs 1RF hydroxyzine pamoate 25 mg PO BID PRN 180 caps 2RF itching trazodone 100 mg PO BEDTIME 90 tabs 1RF Counseling and coordination of Care Pt. Self Management counseling: Maintenance-social rhythm, Mod caffeine/ETOH intake, Nutrition education and improvement, Sleep hygiene and General coping skills Medication management counseling: Effectiveness, Side effects, Dosing range, Duration, Drug interaction and Adherence Diagnosis and Prognosis Counseling: Accuracy of diagnosis, Prognosis over time, Problematic behaviors secondary to diagnosis and Adequacy of current interventions Details: I spent 35 minutes reviewing the record, seeing the patient and documenting in the medical record. Counseling provided to the patient/caregiver as outlined below. Addressed patient/caregiver concerns regarding current medication regime including effective adherence. Addressed patient/caregiver concerns regarding diagnosis and prognosis including accuracy of diagnosis, prognosis over time, impact of diagnosis. Addressed patient/caregiver concerns regarding impact of recent stressors. [facility] Medical History (Updated 07/25/23 @ 16:00 by Jayne Diez APRN) Osteoarthritis Hyponatremia Surgical History (Updated 07/25/23 @ 15:57 by Jayne Deiz APRN) H/O bilateral hip replacements Social History: grew up in [place] lived with mother and father, moved to [place], parents with patient was 89 brother who at age 36stepfather entered family when patient was 17separated from and 2 step children (estranged from) couldn't have children of own mom and stepfather are supportive Substance History: none Trauma History: none Coding Level of Care Code Tele Est Pt Level 4 (20571) Diagnoses JOE (generalized anxiety disorder) F41.1 Major depression, recurrent, full remission F33.42
--- OUTSIDE RECORDS SUMMARY | 2025-04-04 20:31 | XMS_ITS | Clinical Summary ---
Author Organization [facility] [address] [facility] Address [address] [place] [address] Phone Care Team Providers Care Admitting Clerk Name Role Phone Anai Stoddard MD Primary Care Provider [phone] Allergies Active Allergy Reactions Criticality Noted Date [...] disorder, r ecurrent episode, in partial remission (CMS/[facility] V24) 08/14/2015 Fallen arches 08/08/2011 Acne 08/03/2010 Anemia 03/18/2008 Raynaud's syndrome 09/01/2006 Overview (03/22/2024): improved Allergic rhinitis 08/09/2005 Asthma 08/09/2005 Immunizations Immunization Administration Dates Next Due Hepatitis B (Ckjdzpd-G-Abzxx , Recombivax HB-Adult) 19yo and older 09/12/2010,03/07/2010,02/02/2010 [...] hips Depression, major, recurrent , in remission (CMS/HCC V24) 06/29/2012 DX:Depression, major, recurr ent, in remission ([facility]) Bursitis of right hip 2014 [...] 8:30 AM EST Office Visit Adult Medicine [address] [phone] Anai Stoddard MD [address] [place] [address] 06/01/2025 3:40 PM EST Appointment Radiology Department - [address] [phone] Health Maintenance Due Date Last Done Comments Hepatitis A Vaccines (1 of 2 - Risk 2-dose series) 1985 RSV Immunization Adult Patients (1 - Risk 50-74 years 1-dose series) 02/23/2016 HIV Screening 04/20/2022 Social Influencers of Health Screening 04/20/2022 Depression Screening 05/12/2024 COVID-19 Vaccine ( season) 2025 01/12/2024, 02/21/2023, 01/18/2022, Additional history exists Influenza Vaccine (#1) 2025 , 02/09/2021, 01/11/2020, Additional history exists Pneumococcal Vaccine: 50+ Years (2 of 2 - PCV) 05/11/2025 10/15/2013 Postponed from 10/15/2014 (Patient Refused) Breast Cancer Screening 05/31/2026 05/31/19 25, 06/13/2023, [...] topic Zoster Vaccines Completed 02/24/2019, 12/10, 01/31/2010 HIB Vaccines Aged Out No longer eligi [...] Procedure Name Priority Date/Time Associated Diagnosis Comments LIPID PANEL WITH REFLEX TO DIRECT LDL Routine 11/08/2024 8:52 AM EDT Routine physical examination Mixed hyperlipidemia HPV WITH REFLEX GENOTYPE Routine 07/27/2024 2:17 PM EDT Encounter for gynecological examination without abnormal finding MG MAMMO DIGITAL SCREENING W RUDOLPH BILAT Routine 05/31/2024 4:16 PM EST Encounter for screening mammogram for breast cancer COLONOSCOPY Routine 07/10/2022 DXA BONE DENSITY STUDY 1+ SITS AXIAL SKEL Routine 01/15/2022 4:05 PM EDT Personal history of (healed) traumatic fracture Family history of osteoporosis Personal history of nicotine dependence Asymptomatic menopausal state HEPATITIS C SCREENING Routine 01/28/2015 from Last 3 Months or Most Recently Relevant to Health Maintenance Results * (ABNORMAL) Lipid panel with reflex to direct LDL (11/08/2024 8:52 AM EDT) Cholesterol 209(H) 0 - 200 mg/dL LAB CHEMISTRY METHOD 11/08/2024 1:56 PM EDT [facility] Triglycerides 85 0 - 150 mg/dL LAB CHEMISTRY METHOD 11/08/2024 1:56 PM EDT [facility] HDL 63 >=40 mg/dL LAB CHEMISTRY METHOD 11/08/2024 1:56 PM EDT [facility] LDL Calculated 129(H) 0 - 100 mg/dL LAB CHEMISTRY METHOD 11/08/2024 1:56 PM EDT [facility] VLDL Cholesterol Moe 17 mg/dL LAB CHEMISTRY METHOD 11/08/2024 1:56 PM EDT [facility] Non HDL Chol. (LDL+VLDL) 146(H) <145 mg/dL LAB CHEMISTRY METHOD 11/08/2024 1:56 PM EDT [facility] Chol/HDL Ratio 3.3 0.0 - 4.4 LAB CHEMISTRY METHOD 11/08/2024 1:56 PM EDT [facility] Blood Venous blood specimen / Unknown Venipuncture / Unknown 11/08/2024 8:52 AM EDT 11/08/2024 8:53 AM EDT us Giulia ESQUIVEL LAB BLOOD ORDERABLES Final Res ult [facility] [address] [place] [address], [place] [phone] * HPV with reflex genotype (07/27/2024 2:17 PM EDT) HPV Negative Negative LAB MICROBIOLOGY METHOD 07/28/2024 2:07 PM EDT [facility] Brushing/Spatula Cervix uteri structure / Unknown 07/27/2024 2:17 PM EDT 07/28/2024 7:34 AM EDT us Erin Ballard CNM LAB MOLECULAR DIAGNOSTICS ORDAnthony RABCHINTAN Final Result [facility] [address] [place] [address], [place] [phone] * MG Mammo Digital Screening w Rudolph bilat (05/31/2024 4:16 PM EST) Anatomical Region Laterality Modality Breast Bilateral Mammography 06/01/2024 4:41 PM EST Impressions 06/01/2024 4:46 PM EST 1. No mammographic evidence of malignancy 2. Scattered fibroglandular tissue BI-RADS CATEGORY: 2 - BENIGN RECOMMENDATION: Screening bilateral mammogram is recommended in 1 year. Mammo Location: [facility], [address] [place] [address], [id number], . -------- FINAL REPORT -------- Dictated By: James Dao Dictated Date: 06/01/2024 16:41 ET Assigned Physician: James Dao Reviewed and Electronically Signed By: James Dao Signed Date: 06/01/2024 16:46 ET Workstation ID: [id number] Transcribed By: Self Edit Transcribed Date: 06/01/2024 [...] is recommended in 1 year. Mammo Location: [facility], [address] [place] [address], [id number], . -------- FINAL REPORT -------- Dictated By: James Dao Dictated Date: 06/01/2024 16:41 ET Assigned Physician: James Dao Reviewed and Electronically Signed By: James Dao Signed Date: 06/01/2024 16:46 ET Workstation ID: [id number] Transcribed By: Self Edit Transcribed Date: 06/01/2024 16:41 ET Anai Stoddard MD IM BI PROCEDURES Final Result * Colonoscopy (07/10/2022) Colonoscopy no interpretation , abstracted Anatomical Region Laterality Modality Other Historical Provider [facility] MAINTENANCE Final Result * DXA BONE DENSITY [...] IMPRESSION: IMPRESSION: Osteopenia by WHO criteria. The [facility] Department of Internal Medicine recommends using National [...] alternative screening schedule based on marleni Ruiz., [facility] May 30, 2011 for patients with osteopenia [...] IMPRESSION: IMPRESSION: Osteopenia by WHO criteria. The [facility] Department of Internal Medicine recommendsusing National Osteoporosis [...] alternative screening schedule based on marleni Ruiz., [place] 2011 for patients with osteopenia (based on [...] R esult * Hepatitis C Screening (01/28/2015) [facility] Hepatitis C Screening abstracted Historical Provider HEALTH MAINTENANCE Final Result from Last 3 Months or Most Recently Relevant to Health Maintenance Insurance [facility] [employer] Care Teams Admitting Clerk Relationship Specialty Start Date End Date Anai Stoddard MD [address] [place] [address] PCP - General Internal Medicine 07/26/24
--- OUTSIDE RECORDS SUMMARY | 2025-04-04 20:31 | XMS_ITS | Clinical Summary ---
Author Organization [facility] Address [address] [place] [address] Care Team Providers Care [employer] Name Role Phone Unavailable Primary Care Provider [...] Vaccine (1 of 2) 02/23/2016 Influenza Vaccine 12/10/2024 02/05/2021 COVID-19 Vaccine (3 - 2024- season) 2025, 08/15/2020 RSV Vaccine 50 years and old er and Patients (1 - 1-dose 75+ series) 2041 Insurance [facility]
== END 2025-04-04 17:03 | disposition home or self-care (01) ==
LOC: HO.HOP 17:02
PROVIDERS: PCP Internal Medicine; Visit Provider Clinical Nurse Specialist Psychiatric/Mental Health
DX: F41.1 Generalized anxiety disorder (principal); F33.42 Major depressive disorder, recurrent, in full remission
CPT/HCPCS: 99214